=== PATIENT | male | born 1935 | race Caucasian/White ===

== ENCOUNTER → 2021-07-01 | Outpatient (CLI) | payer MEDICARE, BC ==
[2021-07-01 11:49] LABS: African American GFR (CKD) >90 (>60 ml/min/1.73 sqM); Blood Urea Nitrogen 22 mg/dL (9-20); Non-African American GFR(CKD) 80 (>60 ml/min/1.73 sqM)
--- NOTE | 2021-07-01 12:57 | CT ---
EXAMINATION TYPE: CT soft tissue neck w con DATE OF EXAM: 07/01/2021 HISTORY: Localized swelling, mass, lump in neck. Pt indicated LT side but said no palpable area. COMPARISON: NONE CT DLP: 314 mGycm. Automated Exposure Control for Dose Reduction was Utilized. TECHNIQUE: CT scan of the neck is performed with IV Contrast, patient injected with 100 mL of Isovue 300, axial images are obtained, coronal and sagittal reformatted images are reviewed. FINDINGS: Airway: No gross abnormality seen. Parotid/submandibular glands: Right submandibular gland not visualized suspect is surgically absent o r markedly atrophic. Carotid/Vascular Structures: Moderate to severe mixed plaque right carotid bulb likely causing signif icant stenosis axial images 51 through 55 in the proximal internal carotid artery requires follow-up. Moderate peripheral calcified plaque left carotid bulb and proximal internal carotid artery without significant stenosis. Osseous Structures: Grade 1 anterolisthesis C5 on C6. Grade 1 retrolisthesis C6 on C7. Moderate disc space narrowing C5-C6 and C6-C7 levels. Posterior spur disc complexes efface the anterior thecal sac at nearly all cervical levels on sagittal images. Multilevel uncovertebral facet degenerative changes greatest on the right in the upper cervical spine and on the left in the mid cervical spine cause si gnificant bilateral neural foraminal narrowing. Other: Prominent but subcentimeter lymph nodes throughout the neck bilaterally. No definitive greater than 1 cm neck adenopathy. For reference right supraclavicular lymph node measures 10 x 7 mm axial i mage 26. Cortical buckle right globe is present. There is cardiomegaly with single lead pacemaker/defibrillato r on the localizer. Streak artifact from cavitary fillings and crowns in the bilateral teeth are note d limiting evaluation at level of mouth. Elevated left hemidiaphragm noted on localizer. IMPRESSION: 1. No definitive suspicious mass or neck adenopathy. 2. Severe mixed plaque right carotid bulb and proximal internal carotid artery likely causing signifi cant stenosis. Advise carotid ultrasound follow-up to confirm. Difficult to accurately measure due to prominent calcified plaque causing blooming artifact. 3. Nonvisualized right submandibular gland, correlate clinically for prior surgery?
== END | disposition home or self-care (01) ==
LOC: RADCTMAIN 10:57
PROVIDERS: ATTEND Otolaryngology
DX: J30.2 Other seasonal allergic rhinitis (principal); R49.0 Dysphonia; R22.1 Localized swelling, mass and lump, neck
CPT/HCPCS: 82565; 84520; 70491; 36415; Q9967

== ENCOUNTER → 2021-07-26 | Outpatient (CLI) | payer MEDICARE, BC ==
--- NOTE | 2021-07-26 12:08 | FL ---
EXAMINATION TYPE: FL barium swallow w video DATE OF EXAM: 07/26/2021 MODIFIED SWALLOW / DEGLUTITION STUDY CLINICAL HISTORY: Dysphagia. TECHNIQUE: Deglutition study is performed utilizing thin liquid barium, honey and nectar thick liqui d barium, barium thick applesauce, and barium coated cracker. COMPARISON: CT dated 07/01/2021 FINDINGS: Laryngeal penetration and silent aspiration was noted with the thin barium consistency. Oth erwise no evidence of laryngeal penetration or aspiration at the time of the study. Total fluoroscopi c time 1 minute and 48 seconds. No images on PACS. IMPRESSION: Laryngeal penetration with silent aspiration as described above. Please refer to speech t herapist notes for further details.
== END | disposition home or self-care (01) ==
LOC: RADFLMAIN 10:56
PROVIDERS: ATTEND Otolaryngology
DX: J39.2 Other diseases of pharynx (principal); R49.0 Dysphonia
CPT/HCPCS: 74230

== ENCOUNTER → 2021-10-14 | Outpatient (CLI) | payer MEDICARE, BC ==
[2021-10-14 11:28] LABS: African American GFR (CKD) >90 (>60 ml/min/1.73 sqM); Blood Urea Nitrogen 19 mg/dL (9-20); Non-African American GFR(CKD) 81 (>60 ml/min/1.73 sqM)
--- NOTE | 2021-10-14 12:05 | CT ---
EXAMINATION TYPE: CT soft tissue neck w con DATE OF EXAM: 10/14/2021 HISTORY: OTHER DISEASES OF PHARYNX COMPARISON: CT neck July 01, 2021 CT DLP: 255.1 mGycm. Automated Exposure Control for Dose Reduction was Utilized. TECHNIQUE: CT scan of the neck is performed with IV Contrast, patient injected with 70 mL of Isovue 300, axial images are obtained, coronal and sagittal reformatted images are reviewed. FINDINGS: Airway: Airway remains patent. No significant change from prior. Parotid/submandibular glands: Nonvisualized right submandibular gland redemonstrated. Correlate clini nawaf. Carotid/Vascular Structures: Severe calcified plaque right carotid bulb likely causing significant st enosis redemonstrated. Correlate clinically. Moderate calcified plaque left common carotid and caroti d bulb redemonstrated . Osseous Structures: Severe Grade 1 anterolisthesis C5 on C6 redemonstrated more prominent from prior. Moderate to severe disc space narrowing C5-C6 and C6-C7 levels redemonstrated. Posterior calcified d isc herniations efface the anterior thecal sac at nearly all cervical levels on sagittal images. Mult ilevel uncovertebral facet degenerative changes greatest on the right in the upper cervical spine and on the left in the mid cervical spine cause significant bilateral neural foraminal narrowing similar to prior. Levoconvex scoliosis centered cervical thoracic junction redemonstrated. Other: Prominent but subcentimeter lymph nodes throughout the neck bilaterally are again seen. No def initive new greater than 1 cm neck adenopathy. For reference right supraclavicular lymph node measure s 10 x 7 mm axial image 21 unchanged from prior. Cortical buckle right globe is redemonstrated. There is cardiomegaly with single lead pacemaker/defib rillator on the localizer redemonstrated. Streak artifact from cavitary fillings and crowns in the bi lateral teeth are noted limiting evaluation at level of mouth. Elevated left hemidiaphragm noted part ially imaged on localizer. IMPRESSION: No significant change from prior. No definitive new oral pharyngeal mass or new greater than 1 cm nec k adenopathy.
== END | disposition home or self-care (01) ==
LOC: RADCTMAIN 10:50
PROVIDERS: ATTEND Otolaryngology
DX: J39.2 Other diseases of pharynx (principal); R49.0 Dysphonia
CPT/HCPCS: 82565; 84520; 70491; 36415; Q9967

== ENCOUNTER 2022-02-27 12:28 | Inpatient (IN) | payer MEDICARE, BC ==
[2022-02-27] MEDS ORDERED: SODIUM CHLORIDE 0.9% 1,000 ML IV STA ×3 (12:50→15:50)
[2022-02-27 13:14] LABS: Basophils % (A) 0 %; Eosinophils % (A) 1 %; HCT 39.1 % (39.0-53.0); HGB 12.6 gm/dL (13.0-17.5); Lymphocytes # (A) 3.9 k/uL (1.0-4.8); Lymphocytes % (A) 50 %; MCH 33.5 pg (25.0-35.0); MCHC 32.3 g/dL (31.0-37.0); MCV 103.7 fL (80.0-100.0); Macrocytosis Moderate; Monocytes # (A) 0.1 k/uL (0-1.0); Monocytes % (A) 1 %; Neutrophils # (A) 3.5 k/uL (1.3-7.7); Neutrophils % (A) 45 %; Platelet Count 196 k/uL (150-450); RBC 3.77 m/uL (4.30-5.90); RDW 15.2 % (11.5-15.5); WBC 7.7 k/uL (3.8-10.6)
[2022-02-27 13:26] LABS: ALT 25 U/L (4-49); AST 30 U/L (17-59); African American GFR (CKD) >90 (>60 ml/min/1.73 sqM); Albumin 2.8 g/dL (3.5-5.0); Alkaline Phosphatase 113 U/L (38-126); Anion Gap 3 mmol/L; Blood Urea Nitrogen 24 mg/dL (9-20); Calcium 9.1 mg/dL (8.4-10.2); Carbon Dioxide 31 mmol/L (22-30); Chloride 98 mmol/L (98-107); Glucose 105 mg/dL (74-99); Magnesium 1.8 mg/dL (1.6-2.3); Non-African American GFR(CKD) 83 (>60 ml/min/1.73 sqM); Potassium 3.9 mmol/L (3.5-5.1); Sodium 132 mmol/L (137-145); Total Bilirubin 1.5 mg/dL (0.2-1.3); Total Protein 5.1 g/dL (6.3-8.2)
--- NOTE | 2022-02-27 14:13 | XR ---
EXAMINATION TYPE: XR chest 2V DATE OF EXAM: 02/27/2022 2:06 PM COMPARISON: None TECHNIQUE: XR chest 2V Frontal and lateral views of the chest. CLINICAL INDICATION:Male, 86 years old with history of Weakness; FINDINGS: Lungs/Pleura: There is no evidence of pleural effusion, focal consolidation, or pneumothorax. Promin ent perihilar interstitial lung markings. Elevation of the left hemidiaphragm. Heart/mediastinum: Cardiomediastinal silhouette is enlarged. Atherosclerotic calcifications are seen in the aorta. Single-lead cardiac conduction device overlying the left hemithorax with lead projecti ng over the right ventricle. Musculoskeletal: Multiple level degenerative disc disease changes seen throughout the spine. No acute osseous abnormality. Diffuse bony demineralization. Severe bilateral shoulder arthropathy. IMPRESSION: Cardiomegaly with prominent perihilar interstitial lung markings which may represent pulmonary edema. Correlate for CHF exacerbation versus atypical viral pneumonia.
--- NOTE | 2022-02-27 15:40 | ED ---
Weakness HPI - General Chief complaint: Weakness Stated complaint: weakness Time Seen by Provider: 02/27/22 12:50 Source: EMS Mode of arrival: EMS Limitations: no limitations - History of Present Illness Initial comments: Patient is an 86-year-old male who presents to the emergency department for evaluation of weakness. According to family patient has been at [facility] for the past month after left hip replacement. They're concerned that patient has been very weak and has little appetite despite taking an appetite stimulant. State patient has lost 15 pounds in the past 3 weeks. Patient is a and O 3. He reports generalized weakness and occasional cough. He denies fever, chills, chest pain, shortness of breath, abdominal pain, nausea, vomiting, burning with urination. Family reports history of myocardial infarction, pacemaker for unknown arrhythmia. Patient on lovenox. - Related Data Home Medications Medication Instructions Recorded Confirmed Acetaminophen Tab [Tylenol] 650 mg PO Q4H PRN 02/27/22 02/27/22 Aspirin EC [Ecotrin Low Dose] 81 mg PO DAILY 02/27/22 02/27/22 Calcium Carbonate [Calcium] 1,200 mg PO HS 02/27/22 02/27/22 Calcium Carbonate [Tums] 500 mg PO Q12H 02/27/22 02/27/22 Cholecalciferol [Vitamin D3 (25 50 mcg PO DAILY 02/27/22 02/27/22 Mcg = 1000 Iu)] Cyanocobalamin [Vitamin B-12] 500 mcg PO DAILY 02/27/22 02/27/22 Dorzolamide 2% [Trusopt 2%] 1 drop BOTH EYES Q8H 02/27/22 02/27/22 Enoxaparin [Lovenox] 40 mg SQ DAILY 02/27/22 02/27/22 Furosemide [Lasix] 40 mg PO DAILY@0600 02/27/22 02/27/22 HYDROcodone/APAP 5-325MG [Holt 1 - 2 tab PO Q4H PRN 02/27/22 02/27/22 5-325] Isosorbide Mononitrate ER [Imdur] 60 mg PO DAILY 02/27/22 02/27/22 Lactose-Reduced Food [Ensure Plus] 237 ml PO TID@0900,1300,2100 02/27/22 02/27/22 Lactulose 20 gm PO BID 02/27/22 02/27/22 Melatonin 5 mg PO HS 02/27/22 02/27/22 Metoprolol Tartrate [Lopressor] 25 mg PO Q12H 02/27/22 02/27/22 Omeprazole Magnesium [PriLOSEC OTC] 20 mg PO DAILY@0600 02/27/22 02/27/22 Pravastatin Sodium [Pravachol] 40 mg PO HS 02/27/22 02/27/22 Tamsulosin HCl [Flomax] 0.4 mg PO BID 02/27/22 02/27/22 levETIRAcetam [Keppra] 500 mg PO Q12H 02/27/22 02/27/22 Allergies Allergy/AdvReac Type Severity Reaction Status Date / Time No Known Allergies Allergy Verified 02/27/22 14:45 Review of Systems ROS Statement: Those systems with pertinent positive or pertinent negative responses have been documented in the HPI. ROS Other: All systems not noted in ROS Statement are negative. General Exam Limitations: no limitations General appearance: alert, in no apparent distress Eye exam: Present: normal appearance, PERRL, EOMI. Absent: scleral icterus, conjunctival injection, periorbital swelling Respiratory exam: Present: normal lung sounds bilaterally. Absent: respiratory distress, wheezes, rales, rhonchi, stridor Cardiovascular Exam: Present: regular rate, normal rhythm, normal heart sounds. Absent: systolic murmur, diastolic murmur, rubs, gallop, clicks GI/Abdominal exam: Present: soft, normal bowel sounds. Absent: distended, tenderness, guarding, rebound, rigid Extremities exam: Present: normal inspection, normal capillary refill. Absent: pedal edema Neurological exam: Present: alert, oriented X3, CN II-XII intact Psychiatric exam: Present: normal affect, normal mood Course Vital Signs 02/27/22 02/27/22 02/27/22 12:31 13:00 13:30 Temperature 98.3 F Pulse Rate 75 75 69 Respiratory 18 23 20 Rate Blood Pressure 100/67 100/67 88/60 O2 Sat by Pulse 96 97 96 Oximetry 02/27/22 02/27/22 02/27/22 14:00 15:00 15:30 Temperature Pulse Rate 76 76 Respiratory 16 16 Rate Blood Pressure 91/59 106/64 95/59 O2 Sat by Pulse 96 94 L Oximetry Medical Decision Making - Medical Decision Making Was pt. sent in by a medical professional or institution (LINDSAY Cisneros, SENIOR FACILITIES MANAGER, urgent ca re, hospital, or care home...) When possible be specific @ -[No] Did you speak to anyone other than the patient for history (EMS, parent, family, police, friend...)? What history was obtained from this source @ -[No] Did you review nursing and triage notes (agree or disagree)? Why? @ -[I reviewed and agree with nursing and triage notes] Were old charts reviewed (outside hosp., previous admission, EMS record, old EKG, old radiological studies, urgent care reports/EKG's, care home records)? Report findings @ -[No old charts were reviewed] Differential Diagnosis (chest pain, altered mental status, abdominal pain women, abdominal pain men, vaginal bleeding, weakness, fever, dyspnea, syncope, headache, dizziness, GI bleed, back pain, seizure, CVA, palpatations, mental health)? @ Differential Weakness: Hypoglycemia, shock, sepsis, hyponatremia, anemia, infection, [place], ETOH, adverse medicine reaction, overdose, stroke, this is not meant to be an all-inclusive list. EKG interpreted by me (3pts min.). @ -Yes, this rhythm without ST segment or T-wave abnormality. Ventricular rate 70, VA interval 118, QRS duration 110, QTC 4:15 X-rays interpreted by me (1pt min.). @Yes, chest x-ray concerning for viral pneumonia. CT interpreted by me (1pt min.). @ -[None done] U/S interpreted by me (1pt. min.). @ -[None done] What testing was considered but not performed or refused? (CT, X-rays, U/S, labs)? Why? @ -[None] What meds were considered but not given or refused? Why? @ -[None] Did you discuss the management of the patient with other professionals (professionals i.e. LINDSAY Cisneros, SENIOR FACILITIES MANAGER, lab, RT, psych nurse, psych social worker, rn neonatal, teacher, weapons officer naval activity, top case assembler)? Give summary @ -[No] Was smoking cessation discussed for >3mins.? @ -[No] Was critical care preformed (if so, how long)? @ -[No] Were there social determinants of health that impacted care today? How? (Homelessness, low income, unemployed, alcoholism, drug addiction, transportation, low edu. Level, literacy, decrease access to med. care, skilled nursing, rehab)? @ -[No] Was there de-escalation of care discussed even if they declined (Discuss DNR or withdrawal of care, Hospice)? DNR status @ -[No] What co-morbidities impacted this encounter? (DM, HTN, Smoking, COPD, CAD, Cancer, CVA, ARF, Chemo, Hep., AIDS, mental health diagnosis, sleep apnea, morbid obesity)? @ -[place], pacemaker Was patient admitted / discharged? Hospital course, mention meds given and route, prescriptions, significant lab abnormalities, going to OR and other pertinent info. @ -This is an 86-year-old male presenting for generalized weakness.Laboratory studies significant for anemia, hemoglobin 12.6. No previous for comparison. There is mild hyponatremia at 132, treated with a fluid bolus. BNP is elevated at 1960 however there is no evidence of edema. Chest pain or shortness of breath. Urinalysis reveals use. Influenza A is detected. Chest x-ray is concerning for viral pneumonia. Despite fluid bolus blood pressure remained on the low side, 95/59 after fluids. Maintenace fluids initiated. No fever, no hypoxia. Patient to be admitted for viral pneumonia with hypotension. Case discussed with Dr. Stapleton who accepted admission Undiagnosed new problem with uncertain prognosis? @ -[No] Drug Therapy requiring intensive monitoring for toxicity (Heparin, Nitro, Insulin, Cardizem)? @ -[No] Were any procedures done? @ -[No] Diagnosis/symptom? @ -influenza with pneumoniaa Acute, or Chronic, or Acute on Chronic? @ acute Uncomplicated (without systemic symptoms) or Complicated (systemic symptoms)? @ -uncomplicated Side effects of treatment? @ -[No] Exacerbation, Progression, or Severe Exacerbation? @ -[No] Poses a threat to life or bodily function? How? (Chest pain, [place], [place], pneumonia, PE, COPD, DKA, ARF, appy, cholecystitis, CVA, Diverticulitis, Homicidal, Suicidal, threat to staff... and all critical care pts) @ -[No] Dr. Cisneros is my attending. - Lab Data Result diagrams: 02/27/22 12:54 02/27/22 12:54 Lab Results 02/27/22 02/27/22 02/27/22 Range/Units 12:54 12:54 12:54 WBC 7.7 (3.8-10.6) k/uL RBC 3.77 L (4.30-5.90) m/uL Hgb 12.6 L (13.0-17.5) gm/dL Hct 39.1 (39.0-53.0) % MCV 103.7 H (80.0-100.0) fL MCH 33.5 (25.0-35.0) pg MCHC 32.3 (31.0-37.0) g/dL RDW 15.2 (11.5-15.5) % Plt Count 196 (150-450) k/uL MPV 8.0 Neutrophils % 45 % Lymphocytes % 50 % Monocytes % 1 % Eosinophils % 1 % Basophils % 0 % Neutrophils # 3.5 (1.3-7.7) k/uL Lymphocytes # 3.9 (1.0-4.8) k/uL Monocytes # 0.1 (0-1.0) k/uL Eosinophils # 0.0 (0-0.7) k/uL Basophils # 0.0 (0-0.2) k/uL Macrocytosis Moderate Sodium 132 L (137-145) mmol/L Potassium 3.9 (3.5-5.1) mmol/L Chloride 98 (98-107) mmol/L Carbon Dioxide 31 H (22-30) mmol/L Anion Gap 3 mmol/L BUN 24 H (9-20) mg/dL Creatinine 0.75 (0.66-1.25) mg/dL Est GFR (CKD-EPI)AfAm >90 (>60 ml/min/1.73 sqM) Est GFR (CKD-EPI)NonAf 83 (>60 ml/min/1.73 sqM) Glucose 105 H (74-99) mg/dL Plasma Lactic Acid Lucio 1.6 (0.7-2.0) mmol/L Calcium 9.1 (8.4-10.2) mg/dL Magnesium 1.8 (1.6-2.3) mg/dL Total Bilirubin 1.5 H (0.2-1.3) mg/dL AST 30 (17-59) U/L ALT 25 (4-49) U/L Alkaline Phosphatase 113 (38-126) U/L NT-Pro-B Natriuret Pep pg/mL Total Protein 5.1 L (6.3-8.2) g/dL Albumin 2.8 L (3.5-5.0) g/dL TSH 1.980 (0.465-4.680) mIU/L Urine Color Urine Appearance (Clear) Urine pH (5.0-8.0) Ur Specific [place] (1.001-1.035) Urine Protein (Negative) Urine Glucose (UA) (Negative) Urine Ketones (Negative) Urine Blood (Negative) Urine Nitrite (Negative) Urine Bilirubin (Negative) Urine Urobilinogen (<2.0) mg/dL Ur Leukocyte Esterase (Negative) Urine RBC (0-5) /hpf Urine WBC (0-5) /hpf Hyaline Casts (0-2) /lpf Urine Mucus (None) /hpf Urine Yeast (Budding) (None) /hpf Influenza Type A (PCR) (Not Detectd) Influenza Type B (PCR) (Not Detectd) RSV (PCR) (Not Detectd) SARS-CoV-2 (PCR) (Not Detectd) 02/27/22 02/27/22 02/27/22 Range/Units 13:07 13:07 15:07 WBC (3.8-10.6) k/uL RBC (4.30-5.90) m/uL Hgb (13.0-17.5) gm/dL Hct (39.0-53.0) % MCV (80.0-100.0) fL MCH (25.0-35.0) pg MCHC (31.0-37.0) g/dL RDW (11.5-15.5) % Plt Count (150-450) k/uL MPV Neutrophils % % Lymphocytes % % Monocytes % % Eosinophils % % Basophils % % Neutrophils # (1.3-7.7) k/uL Lymphocytes # (1.0-4.8) k/uL Monocytes # (0-1.0) k/uL Eosinophils # (0-0.7) k/uL Basophils # (0-0.2) k/uL Macrocytosis Sodium (137-145) mmol/L Potassium (3.5-5.1) mmol/L Chloride (98-107) mmol/L Carbon Dioxide (22-30) mmol/L Anion Gap mmol/L BUN (9-20) mg/dL Creatinine (0.66-1.25) mg/dL Est GFR (CKD-EPI)AfAm (>60 ml/min/1.73 sqM) Est GFR (CKD-EPI)NonAf (>60 ml/min/1.73 sqM) Glucose (74-99) mg/dL Plasma Lactic Acid Lucio (0.7-2.0) mmol/L Calcium (8.4-10.2) mg/dL Magnesium (1.6-2.3) mg/dL Total Bilirubin (0.2-1.3) mg/dL AST (17-59) U/L ALT (4-49) U/L Alkaline Phosphatase (38-126) U/L NT-Pro-B Natriuret Pep 1960 pg/mL Total Protein (6.3-8.2) g/dL Albumin (3.5-5.0) g/dL TSH (0.465-4.680) mIU/L Urine Color Yellow Urine Appearance Cloudy (Clear) Urine pH 7.0 (5.0-8.0) Ur Specific [place] 1.013 (1.001-1.035) Urine Protein Negative (Negative) Urine Glucose (UA) Negative (Negative) Urine Ketones Negative (Negative) Urine Blood Negative (Negative) Urine Nitrite Negative (Negative) Urine Bilirubin Negative (Negative) Urine Urobilinogen 2.0 (<2.0) mg/dL Ur Leukocyte Esterase Negative (Negative) Urine RBC 2 (0-5) /hpf Urine WBC 2 (0-5) /hpf Hyaline Casts 1 (0-2) /lpf Urine Mucus Rare H (None) /hpf Urine Yeast (Budding) Few H (None) /hpf Influenza Type A (PCR) Detected A (Not Detectd) Influenza Type B (PCR) Not Detected (Not Detectd) RSV (PCR) Not Detected (Not Detectd) SARS-CoV-2 (PCR) Not Detected (Not Detectd) Disposition Clinical Impression: Generalized weakness, Hypotension, Influenza A with pneumonia Disposition: ADMITTED IP TO THIS [facility] Condition: Good Referrals: Morris Thibodeaux MD [Primary Care Provider] - 1-2 days
[2022-02-27 15:47] LABS: Appearance,Urine Cloudy (Clear); Bilirubin,Urine Negative (Negative); Blood,Urine Negative (Negative); Budding Yeast,Urine Few /hpf; Color,Urine Yellow; Glucose,Urine (UA) Negative (Negative); Hyaline Casts,Urine 1 /lpf (0-2); Ketones,Urine Negative (Negative); Leukocyte Esterase,Urine Negative (Negative); Mucus,Urine Rare /hpf; Nitrite,Urine Negative (Negative); Protein,Urine Negative (Negative); RBC,Urine 2 /hpf (0-5); Specific Gravity,Urine 1.013 (1.001-1.035); WBC,Urine 2 /hpf (0-5)
[2022-02-27] MEDS ORDERED: NALOXONE 0.4 MG/ML 1 ML VIAL IV PRN (16:09)
[2022-02-27] MEDS ORDERED: FLUCONAZOLE 150 MG TAB PO STA (18:19)
[2022-02-28] MEDS ORDERED: CALCIUM CARBONATE 500 MG CHEWABLE PO SCH (00:15)
[2022-02-28] MEDS ORDERED: DORZOLAMIDE HCL 2% DROPS 10 ML BTL BOTH EYES SCH (01:00)
[2022-02-28] MEDS ORDERED: levETIRAcetam 500 MG TAB PO SCH (01:00)
[2022-02-28] MEDS ORDERED: METOPROLOL TARTRATE 25 MG TAB PO SCH (01:00)
[2022-02-28] MEDS ORDERED: HYDROcodone/APAP 5-325MG 1 EACH TAB PO PRN (01:00)
[2022-02-28] MEDS: CALCIUM CARBONATE 500 MG CHEWABLE PO SCH (01:46)
--- NOTE | 2022-02-28 02:01 | HP ---
HISTORY AND PHYSICAL HISTORY OF PRESENT ILLNESS: This is an 86-year-old white male who came to the emergency room with weakness, very weak, low appetite despite appetite stimulant, lost 15 pounds in 3 weeks. He is alert and oriented x3. His cough, congestion, and influenza positive. I have started him on Tamiflu, steroids, dietary consult. HOME MEDICINES: 1. Tylenol. 2. Aspirin. 3. Calcium carbonate. 4. Vitamin D. 5. Vitamin B12. 6. Lovenox. 7. Lasix. 8. Trusopt ophthalmic. 9. Lopressor 25 b.i.d. 10.Omeprazole 20 mg daily. 11.Pravachol 40 mg daily. 12.Flomax 0.4 mg b.i.d. 13.Keppra 500 b.i.d. 14.Imdur 60 daily. 15.Tanana 5/325 every 4-6. ALLERGIES: Negative. REVIEW OF SYSTEMS: A 14-point review of systems otherwise negative. PHYSICAL EXAMINATION: VITAL SIGNS: Reviewed. Temp 98.3, blood pressure is 88 to 100 systolic over 60s, O2 96 on room air, respiratory rate 18 to 20, and pulse ox 75-80. GENERAL: Weak, fatigued, dry skin turgor. HEENT: Dry mucous membranes. Pupils equal, round, and reactive. CARDIOVASCULAR: S1, S2. LUNGS: Scattered wheeze or rhonchi. HEMATOLOGY: Negative Homans. PSYCH: Fair mood and affect. NEUROLOGIC: Alert and oriented x3. ASSESSMENT: Influenza A, acute hypoxemic respiratory distress secondary to influenza A, possible congestive heart failure versus COPD. Prognosis guarded. Pulmonary infectious disease consult. Start him on Tamiflu, steroids updrafts. Prognosis guarded. MMODL / IJN: [id number] /
[2022-02-28] MEDS: FUROSEMIDE 40 MG TAB PO SCH (05:35)
[2022-02-28] MEDS: PANTOPRAZOLE 40 MG TABLET PO SCH (05:35)
[2022-02-28] MEDS: IPRATROPIUM-ALBUTEROL 3 ML NEB INHALATION SCH ×4 (07:37→20:33)
[2022-02-28] MEDS ORDERED: BUDESONIDE 0.5 MG/2 ML NEBU INHALATION SCH (08:00)
[2022-02-28] MEDS ORDERED: NON FORMULARY DRUG (Lactose-Reduced Food [Ensure Plus] 237 ML Ml) PO SCH (09:00)
[2022-02-28] MEDS: ACETAMINOPHEN TAB 325 MG TAB PO PRN (09:51)
[2022-02-28] MEDS: ENOXAPARIN 40 MG/0.4 ML SYRINGE SQ SCH (09:51)
[2022-02-28] MEDS: LACTULOSE 20 GM/30 ML CUP PO SCH ×2 (09:51→20:56)
[2022-02-28] MEDS: ISOSORBIDE MONONITRATE ER 60 MG TAB.ER.24H PO SCH (09:52)
[2022-02-28] MEDS: levETIRAcetam 500 MG TAB PO SCH ×2 (09:52→15:30)
[2022-02-28] MEDS: ASPIRIN 81 MG PO SCH (09:52)
[2022-02-28] MEDS: TAMSULOSIN 0.4 MG CAP.ER.24H PO SCH ×2 (09:52→20:55)
[2022-02-28] MEDS: methylPREDNISolone SOD SUCCI 40 MG/ML 1 ML VIAL IV SCH ×3 (09:52→23:16)
[2022-02-28] MEDS: CHOLECALCIFEROL 25 MCG (1000 IU) TABLET PO SCH (09:52)
[2022-02-28] MEDS: OSELTAMIVIR 75 MG CAP PO SCH ×2 (09:52→22:12)
[2022-02-28] MEDS: CYANOCOBALAMIN 500 MCG TAB PO SCH (09:52)
[2022-02-28] MEDS: METOPROLOL TARTRATE 25 MG TAB PO SCH ×2 (09:52→20:55)
[2022-02-28] MEDS: DORZOLAMIDE HCL 2% DROPS 10 ML BTL BOTH EYES SCH ×2 (09:53→16:52)
--- NOTE | 2022-02-28 10:17 | CT ---
EXAMINATION TYPE: CT chest wo con CT DLP: 251.9 mGycm, Automated exposure control for dose reduction was used. DATE OF EXAM: 02/28/2022 9:56 AM COMPARISON: Chest radiograph 02/27/2022. CLINICAL INDICATION:Male, 86 years old with history of dyspnea; TECHNIQUE: Multiple axial images were obtained through the chest without IV contrast. Lack of IV or o ral contrast limits evaluation of solid and hollow organ viscera. FINDINGS: LUNGS/ PLEURA: Mild centrilobular emphysematous changes. Bilateral lower lobe dependent reticular mary jo undglass opacities. No suspicious pulmonary nodule or mass. AIRWAY: Patent and unremarkable.. HEART: Moderate cardiomegaly. No pericardial effusion. Moderate coronary artery calcifications. MEDIASTINUM: No gross evidence of adenopathy. VASCULATURE: Ascending thoracic aortic aneurysm measuring up to 4.3 cm. Tortuosity of the thoracic a kita. Left chest wall single-lead cardiac pacing device. Atherosclerotic scattered calcification of t he aorta and its branches MUSCULOSKELETAL: No acute osseous abnormalities. Severe bilateral shoulder arthropathy. Mild multilev el degenerative disc disease. Grade 1 anterolisthesis of T1 on T2, likely degenerative. SOFT TISSUES/LYMPH NODES: Unremarkable. LOWER NECK: No significant findings. UPPER ABDOMEN: Subcentimeter anterior left hepatic lobe hypodense lesion which is too small to charac terize. IMPRESSION: 1. Bilateral lower lobe dependent reticular ground glass opacities which may represent atelectasis ve rsus atypical viral pneumonia in the appropriate clinical setting. 2. Mild COPD changes. 3. Descending thoracic aortic aneurysm measuring up to 4.3 cm. 4. Moderate cardiomegaly with moderate coronary artery calcifications.
--- NOTE | 2022-02-28 14:03 | P.CNPUL ---
History of Present Illness Consult date: 02/28/22 Requesting physician: Jake Stapleton Reason for consult: dyspnea, abnormal CXR/CT Chief complaint: Weakness, dehydration, shortness of breath History of present illness: This is a very pleasant 86-year-old male patient with a known history of hypertension, hyperlipidemia, BPH,, congestive heart failure, AICD placement. In January 2022 the patient had sustained a fall at home and broke his left hip. He was seen at [facility] emergency room and subsequent ablation count is [facility] for left hip surgery and repair. He was discharged from there on 01/31/2022 to [facility] on the [place]. While there he contracted influenza and had been eating progressively weak. They transferred him to the sick [facility] and he was not receiving any physical therapy. He had been losing a significant amount of weight. He is brought into the emergency room yesterday for an evaluation. White count 7.7. Hemoglobin 12.6. Platelets 196. Sodium 132. Potassium 3.9. BUN 24. Creatinine 0.75. ProBNP 1960. TSH 1.9. Influenza A+ COVID-19 screen negative. RSV screen negative. Pro-calcitonin pending. He is seen today in consultation on the in the emergency department. He is currently sitting up in as a chair. Awake and alert. He appears dehydrated. He is weak and cachectic. He is maintaining O2 saturations in the 90s on room air. Chest x-ray reveals cardiomegaly with prominent perihilar interstitial lung markings consistent with congestive heart failure versus atypical viral pneumonia. Computed tomography scan of the chest revealed bilateral lower lobe dependent reticular groundglass opacities representing atelectasis versus atypical viral pneumonia. Mild COPD changes. Descending thoracic aortic aneurysm measuring 4.3 cm. There is marketed air cardiomegaly and moderate, coronary artery calcifications. He does have dyspnea with minimal exertion. He has currently a dry nonproductive cough. Previously with some yellow phlegm. No fever. No chills. No nausea, vomiting or diarrhea. He has been initiated on Tamiflu, DuoNeb inhalations, Pulmicort inhalations, IV Solu- Medrol. He is remaining on oral diuretics. Lovenox for DVT prophylaxis. Tylenol for pain control. Review of Systems REVIEW OF SYSTEMS: CONSTITUTIONAL: Generalized weakness, fatigue. Denies any recent significant weight loss or weight gain. EYES: Denies change in vision. EARS, NOSE, MOUTH, THROAT: Denies headaches, denies sore throat. CARDIOVASCULAR: Denies chest pain, palpitations or syncopal episodes. RESPIRATORY: Positive for shortness of breath, cough, congestion no hemoptysis. GASTROINTESTINAL: Denies change in appetite, denies abdominal pain GENITOURINARY: Denies hematuria, denies infections. MUSKULOSKELETAL: Denies pain, denies swelling. INTEGUMENTARY: Denies rash, denies eczema. NEUROLOGICAL: Denies recent memory loss, no recent seizure activity. PSYCHIATRIC: Denies anxiety, denies depression. HEMATOLOGIC/LYMPHATIC: Denies anemia, denies enlarged lymph nodes. Past Medical History Past Medical History: Heart Failure, COPD, Myocardial Infarction ([place]), Pneumonia Additional Past Medical History / Comment(s): [place] 1985, arthritis, History of Any Multi-Drug Resistant Organisms: None Reported Past Surgical History: Back Surgery, Orthopedic Surgery, Pacemaker Additional Past Surgical History / Comment(s): left hip surgery, Pacemaker/Defib inplantation Past Psychological History: No Psychological Hx Reported Smoking Status: Never smoker Past Alcohol Use History: Occasional Past Drug Use History: None Reported Medications and Allergies Home Medications Medication Instructions Recorded Confirmed Type Acetaminophen Tab [Tylenol] 650 mg PO Q4H PRN 02/27/22 02/27/22 History Aspirin EC [Ecotrin Low Dose] 81 mg PO DAILY 02/27/22 02/27/22 History Calcium Carbonate [Calcium] 1,200 mg PO HS 02/27/22 02/27/22 History Calcium Carbonate [Tums] 500 mg PO Q12H 02/27/22 02/27/22 History Cholecalciferol [Vitamin D3 (25 50 mcg PO DAILY 02/27/22 02/27/22 History Mcg = 1000 Iu)] Cyanocobalamin [Vitamin B-12] 500 mcg PO DAILY 02/27/22 02/27/22 History Dorzolamide 2% [Trusopt 2%] 1 drop BOTH EYES Q8H 02/27/22 02/27/22 History Enoxaparin [Lovenox] 40 mg SQ DAILY 02/27/22 02/27/22 History Furosemide [Lasix] 40 mg PO DAILY@0600 02/27/22 02/27/22 History HYDROcodone/APAP 5-325MG [[place]ola 1 - 2 tab PO Q4H PRN 02/27/22 02/27/22 History 5-325] Isosorbide Mononitrate ER [Imdur] 60 mg PO DAILY 02/27/22 02/27/22 History Lactose-Reduced Food [Ensure Plus] 237 ml PO TID@0900,1300,2100 02/27/22 02/27/22 History Lactulose 20 gm PO BID 02/27/22 02/27/22 History Melatonin 5 mg PO HS 02/27/22 02/27/22 History Metoprolol Tartrate [Lopressor] 25 mg PO Q12H 02/27/22 02/27/22 History Omeprazole Magnesium [PriLOSEC OTC] 20 mg PO DAILY@0600 02/27/22 02/27/22 History Pravastatin Sodium [Pravachol] 40 mg PO HS 02/27/22 02/27/22 History Tamsulosin HCl [Flomax] 0.4 mg PO BID 02/27/22 02/27/22 History levETIRAcetam [Keppra] 500 mg PO Q12H 02/27/22 02/27/22 History Allergies Allergy/AdvReac Type Severity Reaction Status Date / Time No Known Allergies Allergy Verified 02/27/22 14:45 Physical Exam Vitals: Vital Signs Temp Pulse Resp BP Pulse Ox 02/28/22 11:47 112 H 02/28/22 11:36 100 02/28/22 09:45 99 F 94 18 128/82 98 02/28/22 07:53 112 H 02/28/22 07:40 100 02/28/22 05:41 87 16 106/75 95 02/27/22 23:34 99.0 F 86 20 111/75 97 02/27/22 23:30 86 20 115/72 02/27/22 23:00 86 20 126/74 02/27/22 22:30 95 23 112/72 02/27/22 22:00 92 20 112/72 02/27/22 21:30 79 16 127/68 02/27/22 21:00 84 20 111/70 02/27/22 20:30 80 22 100/69 02/27/22 20:00 80 25 H 102/67 02/27/22 19:30 78 25 H 106/66 02/27/22 19:00 78 24 97/65 02/27/22 18:30 80 20 100/66 02/27/22 18:00 81 20 92/63 02/27/22 17:30 76 20 93/71 02/27/22 17:00 73 22 88/58 98 02/27/22 16:30 77 23 102/65 99 02/27/22 16:00 75 20 86/65 99 02/27/22 15:30 76 16 95/59 94 L 02/27/22 15:00 76 16 106/64 96 02/27/22 14:00 91/59 GENERAL EXAM: Alert, frail, cachectic very pleasant 86-year-old male patient, on room air, fairly comfortable in no apparent distress. HEAD: Normocephalic. EYES: Normal reaction of pupils, equal size. NOSE: Clear with pink turbinates. THROAT: No erythema or exudates. NECK: No masses, no JVD. CHEST: No chest wall deformity. LUNGS: Equal air entry with faint crackles in the posterior bases. CVS: S1 and S2 normal with no audible murmur, regular rhythm. ABDOMEN: No hepatosplenomegaly, normal bowel sounds, no guarding or rigidity. SPINE: No scoliosis or deformity SKIN: No rashes CENTRAL NERVOUS SYSTEM: No focal deficits, tone is normal in all 4 extremities. EXTREMITIES: There is no peripheral edema. No clubbing, no cyanosis. Peripheral pulses are intact. Results - Laboratory Findings CBC and BMP: 02/27/22 12:54 02/27/22 12:54 Abnormal lab findings: Abnormal Labs 02/27/22 02/27/22 02/27/22 12:54 12:54 13:07 RBC 3.77 L Hgb 12.6 L MCV 103.7 H Sodium 132 L Carbon Dioxide 31 H BUN 24 H Glucose 105 H Total Bilirubin 1.5 H Total Protein 5.1 L Albumin 2.8 L Urine Mucus Urine Yeast (Budding) Influenza Type A (PCR) Detected A 02/27/22 15:07 RBC Hgb MCV Sodium Carbon Dioxide BUN Glucose Total Bilirubin Total Protein Albumin Urine Mucus Rare H Urine Yeast (Budding) Few H Influenza Type A (PCR) - Diagnostic Findings Chest x-ray: image reviewed CT scan - chest: image reviewed Assessment and Plan Assessment: Generalized weakness, failure to thrive secondary to influenza A infection Dyspnea secondary to some evidence of fluid volume overload versus atypical pneumonia Recent fall with left hip fracture status post repair at [facility] on 01/28/2022 Inpatient rehabilitation at [facility] on [facility] since 01/31/2022 Tested positive for influenza approximately 2 weeks ago Hyperlipidemia Hypertension Benign prosthetic hypertrophy History of seizures had been on Keppra in the outpatient setting, exact diagnosis unclear History of permanent pacemaker implantation Plan: The patient was seen and evaluated Chest x-ray, CAT scan, medications and labs reviewed Continue with DuoNeb inhalations Pulmicort 1 mg twice a day inhalations Continue with Tamiflu Continue IV Solu-Medrol Continue diuretics Lovenox for DVT prophylaxis Awaiting pro calcitonin Awaiting sputum sample We will continue to follow and make further recommendations based on his clinical status I have personally seen and examined the patient, performed the documentation and the assessment and plan as written. Number of minutes spent on the visit: 20.
[2022-02-28] MEDS: MELATONIN 5 MG TABLET PO SCH (15:30)
[2022-02-28] MEDS: BUDESONIDE 1 MG/2 ML NEBU INHALATION SCH (20:33)
[2022-02-28] MEDS: PRAVASTATIN SODIUM 40 MG TAB PO SCH (20:55)
--- NOTE | 2022-02-28 22:06 | P.CONS ---
History of Present Illness - Reason for Consult Consult date: 02/28/22 Influenza Requesting physician: Jake Stapleton - Chief Complaint Increasing shortness of breath x few days - History of Present Illness Patient is 86 year old male with a past medical history significant for hypertension hyperlipidemia BPH congestive heart failure patient recently did have a fall with a left hip fracture status post operative repair at [facility] subsequently the patient was sent to [facility] on the [place] for rehabilitation, patient apparently seemed having a problem with increasing shortness of breath and cough that has been going on for couple of weeks now and the family mention they have been told 1 week he has the morning next week no pneumonia patient has not been sent to the ER for evaluation of increasing weakness that he be getting worse for the last few days and the patient not eating decreased appetite but no nausea no vomiting patient denies high-grade fever or chills has been coming of some sore throat but no URI symptoms, has been complaining of cough which is mild to moderate intensity with some yellow sputum or hemoptysis no pleuritic chest pain with January the patient was evaluated on arrival to the ER the patient was afebrile did have a low-grade fever of 99F patient did have a normal white count of 7.7 patient tested positive for influenza, RSV and covid 19 was negative patient did have a chest x-ray with cardiomegaly and prominent perihilar interstitial lung markings patient was started on Tamiflu admitted to the hospital infectious disease was consulted for further management of antibiotic therapy Review of Systems Positive point has been mentioned in the HPI rest of the systems are negative Medications and Allergies Home Medications Medication Instructions Recorded Confirmed Type Acetaminophen Tab [Tylenol] 650 mg PO Q4H PRN 02/27/22 02/27/22 History Aspirin EC [Ecotrin Low Dose] 81 mg PO DAILY 02/27/22 02/27/22 History Calcium Carbonate [Calcium] 1,200 mg PO HS 02/27/22 02/27/22 History Calcium Carbonate [Tums] 500 mg PO Q12H 02/27/22 02/27/22 History Cholecalciferol [Vitamin D3 (25 50 mcg PO DAILY 02/27/22 02/27/22 History Mcg = 1000 Iu)] Cyanocobalamin [Vitamin B-12] 500 mcg PO DAILY 02/27/22 02/27/22 History Dorzolamide 2% [Trusopt 2%] 1 drop BOTH EYES Q8H 02/27/22 02/27/22 History Furosemide [Lasix] 40 mg PO DAILY@0600 02/27/22 02/27/22 History Isosorbide Mononitrate ER [Imdur] 60 mg PO DAILY 02/27/22 02/27/22 History Lactose-Reduced Food [Ensure Plus] 237 ml PO TID@0900,1300,2100 02/27/22 02/27/22 History Lactulose 20 gm PO BID 02/27/22 02/27/22 History Metoprolol Tartrate [Lopressor] 25 mg PO Q12H 02/27/22 02/27/22 History Omeprazole Magnesium [PriLOSEC OTC] 20 mg PO DAILY@0600 02/27/22 02/27/22 History Pravastatin Sodium [Pravachol] 40 mg PO HS 02/27/22 02/27/22 History Tamsulosin HCl [Flomax] 0.4 mg PO BID 02/27/22 02/27/22 History lisinopriL 2.5 mg PO DAILY 03/02/22 03/02/22 History Allergies Allergy/AdvReac Type Severity Reaction Status Date / Time No Known Allergies Allergy Verified 02/27/22 14:45 Physical Exam Vitals: Vital Signs Temp Pulse Resp BP Pulse Ox 02/28/22 09:45 99 F 94 18 128/82 98 02/28/22 07:53 112 H 02/28/22 07:40 100 02/28/22 05:41 87 16 106/75 95 02/27/22 23:34 99.0 F 86 20 111/75 97 02/27/22 23:30 86 20 115/72 02/27/22 23:00 86 20 126/74 02/27/22 22:30 95 23 112/72 02/27/22 22:00 92 20 112/72 02/27/22 21:30 79 16 127/68 02/27/22 21:00 84 20 111/70 02/27/22 20:30 80 22 100/69 02/27/22 20:00 80 25 H 102/67 02/27/22 19:30 78 25 H 106/66 02/27/22 19:00 78 24 97/65 02/27/22 18:30 80 20 100/66 02/27/22 18:00 81 20 92/63 02/27/22 17:30 76 20 93/71 02/27/22 17:00 73 22 88/58 98 02/27/22 16:30 77 23 102/65 99 02/27/22 16:00 75 20 86/65 99 02/27/22 15:30 76 16 95/59 94 L 02/27/22 15:00 76 16 106/64 96 02/27/22 14:00 91/59 02/27/22 13:30 69 20 88/60 96 02/27/22 13:00 75 23 100/67 97 02/27/22 12:31 98.3 F 75 18 100/67 96 GENERAL DESCRIPTION: Elderly male lying in bed, no distress. No tachypnea or accessory muscle of respiration use. HEENT: Shows Pallor , no scleral icterus. Oral mucous membrane is dry. No pharyn geal erythema or thrush NECK: Trachea central, no thyromegaly. LUNGS: Unlabored breathing. Decreased breath sound at the base. No wheeze or crackle. HEART: S1, S2, regular rate and rhythm. No loud murmur ABDOMEN: Soft, no tenderness , guarding or rigidity, no organomegaly EXTREMITIES: No edema of feet. SKIN: No rash, no masses palpable. NEUROLOGICAL: The patient is awake, alert, oriented x2, mood and affect normal. Results CBC & Chem 7: 03/05/22 11:00 03/05/22 11:00 Labs: Abnormal Lab Results - Last 24 Hours (Table) 02/27/22 02/27/22 02/27/22 Range/Units 12:54 12:54 13:07 RBC 3.77 L (4.30-5.90) m/uL Hgb 12.6 L (13.0-17.5) gm/dL MCV 103.7 H (80.0-100.0) fL Sodium 132 L (137-145) mmol/L Carbon Dioxide 31 H (22-30) mmol/L BUN 24 H (9-20) mg/dL Glucose 105 H (74-99) mg/dL Total Bilirubin 1.5 H (0.2-1.3) mg/dL Total Protein 5.1 L (6.3-8.2) g/dL Albumin 2.8 L (3.5-5.0) g/dL Urine Mucus (None) /hpf Urine Yeast (Budding) (None) /hpf Influenza Type A (PCR) Detected A (Not Detectd) 02/27/22 Range/Units 15:07 RBC (4.30-5.90) m/uL Hgb (13.0-17.5) gm/dL MCV (80.0-100.0) fL Sodium (137-145) mmol/L Carbon Dioxide (22-30) mmol/L BUN (9-20) mg/dL Glucose (74-99) mg/dL Total Bilirubin (0.2-1.3) mg/dL Total Protein (6.3-8.2) g/dL Albumin (3.5-5.0) g/dL Urine Mucus Rare H (None) /hpf Urine Yeast (Budding) Few H (None) /hpf Influenza Type A (PCR) (Not Detectd) Assessment and Plan (1) Influenza A Status: Acute Code(s): J10.1 - FLU DUE TO OTH IDENT INFLUENZA VIRUS W OTH RESP MANIFEST SNOMED Code(s): 136226462 Plan: 1patient is in the hospital with increasing shortness of breath cough and weakness which is likely multifactorial in this patient who did tested positive for influenza A and Moraxella likely contributing to his symptoms, however the patient is also complaining of cough and some yellow sputum will need to rule out secondary bacterial pneumonia, clinical suspicion is low and abscess of f ever and normal white count 2we will obtain sputum for Gram stain and culture 3we will check a pro calcitonin level 4patient will continue with Tamiflu We will follow on clinical condition and cultures to further adjust medication if needed Thank you for this consultation will follow this patient with you Time with Patient: Greater than 30
[2022-02-28] MEDS: NYSTATIN 100,000 UNIT/ML SUSP 500,000 UNIT/5 ML CUP PO SCH (22:13)
[2022-03-01] MEDS: DORZOLAMIDE HCL 2% DROPS 10 ML BTL BOTH EYES SCH ×3 (00:26→17:09)
[2022-03-01 05:40] LABS: ALT 32 U/L (4-49); AST 36 U/L (17-59); African American GFR (CKD) >90 (>60 ml/min/1.73 sqM); Albumin 2.9 g/dL (3.5-5.0); Albumin/Globulin Ratio 1.2; Alkaline Phosphatase 130 U/L (38-126); Anion Gap 5 mmol/L; Blood Urea Nitrogen 25 mg/dL (9-20); Calcium 9.2 mg/dL (8.4-10.2); Carbon Dioxide 28 mmol/L (22-30); Chloride 101 mmol/L (98-107); Globulin 2.4 g/dL; Glucose 128 mg/dL (74-99); Non-African American GFR(CKD) 88 (>60 ml/min/1.73 sqM); Potassium 3.9 mmol/L (3.5-5.1); Sodium 134 mmol/L (137-145); Total Bilirubin 1.2 mg/dL (0.2-1.3); Total Protein 5.3 g/dL (6.3-8.2)
[2022-03-01] MEDS: CYANOCOBALAMIN 500 MCG TAB PO SCH (05:54)
[2022-03-01] MEDS: FUROSEMIDE 40 MG TAB PO SCH (05:54)
[2022-03-01] MEDS: PANTOPRAZOLE 40 MG TABLET PO SCH (05:54)
[2022-03-01 06:17] LABS: Basophils % (A) 0 %; Eosinophils % (A) 0 %; HCT 40.9 % (39.0-53.0); HGB 13.1 gm/dL (13.0-17.5); Lymphocytes # (A) 4.2 k/uL (1.0-4.8); Lymphocytes % (A) 43 %; MCH 33.6 pg (25.0-35.0); MCHC 32.1 g/dL (31.0-37.0); MCV 104.9 fL (80.0-100.0); Macrocytosis Moderate; Mean Platelet Volume 8.1; Monocytes # (A) 0.1 k/uL (0-1.0); Monocytes % (A) 1 %; Neutrophils # (A) 5.2 k/uL (1.3-7.7); Neutrophils % (A) 54 %; Platelet Count 194 k/uL (150-450); RDW 14.8 % (11.5-15.5); WBC 9.6 k/uL (3.8-10.6)
[2022-03-01] MEDS: BUDESONIDE 1 MG/2 ML NEBU INHALATION SCH ×2 (08:18→19:55)
[2022-03-01] MEDS: IPRATROPIUM-ALBUTEROL 3 ML NEB INHALATION SCH ×4 (08:20→19:55)
[2022-03-01] MEDS: methylPREDNISolone SOD SUCCI 40 MG/ML 1 ML VIAL IV SCH (09:41)
[2022-03-01] MEDS: ASPIRIN 81 MG PO SCH (10:15)
[2022-03-01] MEDS: CHOLECALCIFEROL 25 MCG (1000 IU) TABLET PO SCH (10:15)
[2022-03-01] MEDS: ISOSORBIDE MONONITRATE ER 60 MG TAB.ER.24H PO SCH (10:16)
[2022-03-01] MEDS: TAMSULOSIN 0.4 MG CAP.ER.24H PO SCH ×2 (10:16→20:53)
[2022-03-01] MEDS: METOPROLOL TARTRATE 25 MG TAB PO SCH ×2 (10:16→20:53)
[2022-03-01] MEDS: ENOXAPARIN 40 MG/0.4 ML SYRINGE SQ SCH (10:16)
[2022-03-01] MEDS: LACTULOSE 20 GM/30 ML CUP PO SCH ×2 (10:17→21:05)
[2022-03-01] MEDS: NYSTATIN 100,000 UNIT/ML SUSP 500,000 UNIT/5 ML CUP PO SCH ×3 (10:17→17:08)
--- NOTE | 2022-03-01 10:35 | FL ---
Exam Date: 03/01/2022 9:29 AM. Modified barium swallow for dysphagia. Consistencies administered: Various consistency of barium. Fluoro time: 1 minute 55 seconds No images were sent to PACS. Please see speech pathology report. There was deep penetration without e vidence for aspiration worse with thinner consistencies.
[2022-03-01] MEDS ORDERED: FLUCONAZOLE 100 MG TAB PO ONE (11:00)
[2022-03-01] MEDS: levETIRAcetam 500 MG TAB PO SCH ×2 (11:16→20:55)
[2022-03-01] MEDS: OSELTAMIVIR 75 MG CAP PO SCH ×2 (11:16→20:55)
--- NOTE | 2022-03-01 11:42 | P.PN ---
Subjective Progress Note Date: 03/01/22 This is a very pleasant 86-year-old male patient with a known history of hypertension, hyperlipidemia, BPH,, congestive heart failure, AICD placement. In January 2022 the patient had sustained a fall at home and broke his left hip. He was seen at [facility] emergency room and subsequent ab lation count is [facility] [place] [place] for left hip surgery and repair. He was discharged from there on 01/31/2022 to [facility] on the [place]. While there he contracted influenza and had been eating progressively weak. They transferred him to the sick [facility] and he was not receiving any physical therapy. He had been losing a significant amount of weight. He is brought into the emergency room yesterday for an evaluation. White count 7.7. Hemoglobin 12.6. Platelets 196. Sodium 132. Potassium 3.9. BUN 24. Creatinine 0.75. ProBNP 1960. TSH 1.9. Influenza A+ COVID-19 screen negative. RSV screen negative. Pro-calcitonin pending. He is seen today in consultation on the in the emergency department. He is currently sitting up in as a chair. Awake and alert. He appears dehydrated. He is weak and cachectic. He is maintaining O2 saturations in the 90s on room air. Chest x-ray reveals cardiomegaly with prominent perihilar interstitial lung markings consistent with congestive heart failure versus atypical viral pneumonia. Computed tomography scan of the chest revealed bilateral lower lobe dependent reticular groundglass opacities representing atelectasis versus atypical viral pneumonia. Mild COPD changes. Descending thoracic aortic aneurysm measuring 4.3 cm. There is marketed air cardiomegaly and moderate, coronary artery calcifications. He does have dyspnea with minimal exertion. He has currently a dry nonproductive cough. Previously with some yellow phlegm. No fever. No chills. No nausea, vomiting or diarrhea. He has been initiated on Tamiflu, DuoNeb inhalations, Pulmicort inhalations, IV Solu- Medrol. He is remaining on oral diuretics. Lovenox for DVT prophylaxis. Tylenol for pain control. The patient is seen today 03/01/2022 in follow-up on the regular medical floor. He is currently resting comfortably in bed. Awake and alert in no acute distress. Maintaining good O2 saturations in the 90s on room air. Area swallow revealed deep penetration without evidence of aspiration worse with thinner consistencies. Awaiting speech therapy report. Blood cultures reveal no growth. White count 9.6. Hemoglobin 13.1. Platelets 194. Sodium 134. Potassium 3.9. BUN 25. Creatinine 0.66. Glucose 128. Urinalysis clear. He is positive for influenza A. He remains on bronchodilators. Continued on Tamiflu. Remains on oral diuretics. He is incontinent with no accurate I&O. Objective - Vital Signs Vital signs: Vital Signs Temp 98.5 F 03/01/22 07:31 Pulse 80 03/01/22 11:26 Resp 17 03/01/22 07:31 BP 115/79 03/01/22 07:31 Pulse Ox 98 03/01/22 07:31 FiO2 Intake & Output 02/28/22 03/01/22 03/01/22 18:59 06:59 18:59 Intake Total 300 Output Total 200 Balance 100 Weight 61.235 kg 61.235 kg Intake: Oral 300 Output: Urine 200 Other: Voiding Method Diaper Diaper # Voids 1 3 # Bowel Movements 1 2 - Exam GENERAL EXAM: Alert, frail, cachectic very pleasant 86-year-old male, resting comfortably in bed, on room air, fairly comfortable in no apparent distress. HEAD: Normocephalic. EYES: Normal reaction of pupils, equal size. NOSE: Clear with pink turbinates. THROAT: No erythema or exudates. NECK: No masses, no JVD. CHEST: No chest wall deformity. LUNGS: Equal air entry with faint crackles in the posterior bases. CVS: S1 and S2 normal with no audible murmur, regular rhythm. ABDOMEN: No hepatosplenomegaly, normal bowel sounds, no guarding or rigidity. SPINE: No scoliosis or deformity SKIN: No rashes CENTRAL NERVOUS SYSTEM: No focal deficits, tone is normal in all 4 extremities. EXTREMITIES: There is no peripheral edema. No clubbing, no cyanosis. Kimberly pheral pulses are intact. - Labs CBC & Chem 7: 03/01/22 04:58 03/01/22 04:58 Labs: Abnormal Lab Results - Last 24 Hours (Table) 03/01/22 03/01/22 Range/Units 04:58 04:58 RBC 3.90 L (4.30-5.90) m/uL MCV 104.9 H (80.0-100.0) fL Sodium 134 L (137-145) mmol/L BUN 25 H (9-20) mg/dL Glucose 128 H (74-99) mg/dL Alkaline Phosphatase 130 H (38-126) U/L Total Protein 5.3 L (6.3-8.2) g/dL Albumin 2.9 L (3.5-5.0) g/dL Microbiology - Last 24 Hours (Table) 02/27/22 21:55 Blood Culture - Preliminary Blood No Growth after 24 hours 02/27/22 22:00 Blood Culture - Preliminary Blood No Growth after 24 hours Assessment and Plan Assessment: Generalized weakness, failure to thrive secondary to influenza A infection. Modified barium swallow results pending. Dyspnea secondary to some evidence of fluid volume overload. Remains on oral diuretics. No evidence of pneumonia. Pro calcitonin 0.07. Recent fall with left hip fracture status post repair at [facility] on 01/28/2022 Inpatient rehabilitation at [facility] since 01/31/2022 Tested positive for influenza approximately 2 weeks ago Hyperlipidemia Hypertension Benign prosthetic hypertrophy History of seizures had been on Keppra in the outpatient setting, exact diagnosis unclear History of permanent pacemaker implantation Plan: The patient was seen and evaluated Medications and labs reviewed Continue bronchodilators Continue Tamiflu Discontinue IV Solu-Medrol Modified barium swallow results pending Speech therapy consulted We will continue to follow I have personally seen and examined the patient, performed the documentation and the assessment and plan as written. Number of minutes spent on the visit: 10.
--- NOTE | 2022-03-01 18:05 | P.PN ---
Progress Note - Text Progress Note Date: 03/01/22 Hospital course: I assumed care of the patient today. Patient follows with Dr. Morris Thibodeaux. 03/01/2022: [facility]. Patient had been at [facility] for the last 1 month. Chronic stable medical conditions included EPH, PAD, GERD, hypertension, hyperlipidemia, dysarthria, CAD with bypass, seizures, anemia, AICD,. Patient is sent joints [facility] from January 26 through January 31 with left femur fracture followed by IM nailing by . Patient's weightbearing as tolerated. Patient was seen by speech therapy. Has been asked aspirating with thin liquids. Discussed with the therapist. Put on nectar thick liquids, supervised. No straws. Patient records from [facility] reviewed. Patient sitting up in a chair. This feeling weak and tired. Patient has no respiratory symptoms. He tested positive for influenza A. On Tamiflu. Active Medications Acetaminophen (Acetaminophen Tab 325 Mg Tab) 650 mg PO Q4H PRN PRN Reason: General Discomfort Last Admin: 02/28/22 09:51 Dose: 650 mg Albuterol/Ipratropium (Ipratropium-Albuterol 3 Ml Neb) 3 ml INHALATION RT-QID [facility] Last Admin: 03/01/22 15:26 Dose: 3 ml Aspirin (Aspirin 81 Mg) 81 mg PO DAILY [facility] Last Admin: 03/01/22 10:15 Dose: Not Given Budesonide (Budesonide 1 Mg/2 Ml Nebu) 1 mg INHALATION RT-BID [facility] Last Admin: 03/01/22 08:18 Dose: 1 mg Calcium Carbonate/Glycine (Calcium Carbonate 500 Mg Chewable) 1,000 mg PO HS [facility] Last Admin: 02/28/22 01:46 Dose: Not Given Cholecalciferol (Cholecalciferol 25 Mcg (1000 Iu) Tablet) 50 mcg PO DAILY [facility] Last Admin: 03/01/22 10:15 Dose: Not Given Cyanocobalamin (Cyanocobalamin 500 Mcg Tab) 500 mcg PO W/BRKFST [facility] Last Admin: 03/01/22 05:54 Dose: 500 mcg Dorzolamide HCl (Dorzolamide Hcl 2% Drops 10 Ml Btl) 1 drops BOTH EYES Q8H [facility] Last Admin: 03/01/22 17:09 Dose: 1 drops Enoxaparin Sodium (Enoxaparin 40 Mg/0.4 Ml Syringe) 40 mg SQ DAILY [facility] Last Admin: 03/01/22 10:16 Dose: 40 mg Fluconazole (Fluconazole 100 Mg Tab) 100 mg PO DAILY [facility]; Protocol Furosemide (Furosemide 40 Mg Tab) 40 mg PO DAILY@0600 [facility] Last Admin: 03/01/22 05:54 Dose: 40 mg Isosorbide Mononitrate (Isosorbide Mononitrate Er 60 Mg Tab.Er.24h) 60 mg PO DAILY [facility] Last Admin: 03/01/22 10:16 Dose: 60 mg Lactulose (Lactulose 20 Gm/30 Ml Cup) 20 gm PO BID [facility] Last Admin: 03/01/22 10:17 Dose: Not Given Levetiracetam (Levetiracetam 500 Mg Tab) 500 mg PO Q12H [facility] Last Admin: 03/01/22 11:16 Dose: 500 mg Melatonin (Melatonin 5 Mg Tablet) 5 mg PO [facility] Last Admin: 02/28/22 15:30 Dose: Not Given Metoprolol Tartrate (Metoprolol Tartrate 25 Mg Tab) 25 mg PO Q12H [facility] Last Admin: 03/01/22 10:16 Dose: 25 mg Naloxone HCl (Naloxone 0.4 Mg/Ml 1 Ml Vial) 0.2 mg IV Q2M PRN PRN Reason: Opioid Reversal Nystatin (Nystatin 100,000 Unit/Ml Susp 500,000 Unit/5 Ml Cup) 500,000 unit PO QID [facility]; Protocol Last Admin: 03/01/22 17:08 Dose: 500,000 unit Oseltamivir Phosphate (Oseltamivir 75 Mg Cap) 75 mg PO Q12HR [facility]; Protocol Stop: 03/04/22 21:01 Last Admin: 03/01/22 11:16 Dose: 75 mg Pantoprazole Sodium (Pantoprazole 40 Mg Tablet) 40 mg PO DAILY@0600 [facility] Last Admin: 03/01/22 05:54 Dose: 40 mg Pravastatin Sodium (Pravastatin Sodium 40 Mg Tab) 40 mg PO HS [facility] Last Admin: 02/28/22 20:55 Dose: 40 mg Tamsulosin HCl (Tamsulosin 0.4 Mg Cap.Er.24h) 0.4 mg PO BID [facility] Last Admin: 03/01/22 10:16 Dose: Not Given On examination: VITAL SIGNS: [98.7, 100, 17, 1 35 x 71, 97% on room air] GENERAL APPEARANCE: BMI 20.5, sitting up in a chair HEENT: Normal external appearance of nose and ear. Oral cavity white coated tongue. EYES: Pupils equal. Conjunctiva normal. NECK: JVD not raised. Mass not palpable. RESPIRATORY: Respiratory effort normal. Lungs clear to auscultation. CARDIOVASCULAR: First and second sounds normal. No edema. ABDOMEN: Soft. Liver and spleen not palpable. No tenderness. No mass palpable. MUSCULAR skeletal: Evidence of OA. Loss of muscle mass. PSYCHIATRY: Patient able to answer simple questions INVESTIGATIONS, reviewed in the clinical context: Modified barium swallow: Deep penetration without evidence of aspiration worse with thin liquids 03/01/2022: White count 9.6 and globin 13.1 platelets 94 potassium 3.9 creatinine 0.66 albumin 2.9 Influenza type A: Detected CT chest: Bilateral lower lobe dependent critically of groundglass opacities, mild COPD changes. Descending code thoracic aorta aneurysm 4.37. Moderate cardiomegaly. Assessment and plan: -Chronic dysphagia with aspiration to thin liquids. Showed aspiration on modified barium swallow. On nectar thick liquids. On his to 1 supervision. No straws. -BPH Flomax -PAD Aspirin, Pravachol -Oropharyngeal candidiasis Diflucan -GERD Prilosec -CAD with prior history of bypass Aspirin, Lopressor, Imdur -Hyperlipidemia Pravachol -Seizure disorder -AICD -Moderate to severe protein calorie malnutrition Nutritional supplement -01/26/2022 left femur fracture -IM nailing at [facility]. PT OT. Not weightbearing as tolerated -Full code Today total of 1 hour was spent in patient care. Including discussion with the nurse,'s therapist, review of records from [facility]. And discussion with the patient.
[2022-03-01] MEDS: ACETAMINOPHEN TAB 325 MG TAB PO PRN (19:36)
[2022-03-01] MEDS: PRAVASTATIN SODIUM 40 MG TAB PO SCH (20:53)
[2022-03-01] MEDS: CALCIUM CARBONATE 500 MG CHEWABLE PO SCH (20:53)
[2022-03-01] MEDS: MELATONIN 5 MG TABLET PO SCH (20:53)
--- NOTE | 2022-03-01 22:59 | P.PN ---
Subjective Progress Note Date: 03/01/22 Principal diagnosis: Acute influenza and pneumonia Patient is 86 year old male with a past medical history significant for hypertension hyperlipidemia BPH congestive heart failure patient recently did have a fall with a left hip fracture status post operative repair currently undergoing rehab at the local residential has been sent to the ER for evaluation of increasing shortness of breath and cough this patient has been diagnosed with acute influenza. On today's evaluation that is 03/01/2022, the patient denies having any fever or dizziness is currently breathing comfortably on room air. Denies having any chest pain cough has decreased intensity is mostly dry in nature no nausea no vomiting no abdominal pain no diarrhea Objective - Vital Signs Vital signs: Vital Signs Temp 98.5 F 03/01/22 07:31 Pulse 80 03/01/22 11:26 Resp 17 03/01/22 07:31 BP 115/79 03/01/22 07:31 Pulse Ox 98 03/01/22 07:31 FiO2 Intake & Output 02/28/22 03/01/22 03/01/22 18:59 06:59 18:59 Intake Total 300 Output Total 200 300 Balance 100 -300 Weight 61.235 kg 61.235 kg Intake: Oral 300 Output: Urine 200 300 Other: Voiding Method Diaper Diaper # Voids 1 3 # Bowel Movements 1 2 - Exam GENERAL DESCRIPTION: An elderly male lying in bed in no distress RESPIRATORY SYSTEM: Unlabored breathing , decreased breath sounds at bases HEART: S1 S2 regular rate and rhythm , ABDOMEN: Soft , no tenderness EXTREMITIES: No edema feet - Labs CBC & Chem 7: 03/01/22 04:58 03/01/22 04:58 Labs: Abnormal Lab Results - Last 24 Hours (Table) 03/01/22 03/01/22 Range/Units 04:58 04:58 RBC 3.90 L (4.30-5.90) m/uL MCV 104.9 H (80.0-100.0) fL Sodium 134 L (137-145) mmol/L BUN 25 H (9-20) mg/dL Glucose 128 H (74-99) mg/dL Alkaline Phosphatase 130 H (38-126) U/L Total Protein 5.3 L (6.3-8.2) g/dL Albumin 2.9 L (3.5-5.0) g/dL Microbiology - Last 24 Hours (Table) 02/27/22 21:55 Blood Culture - Preliminary Blood No Growth after 24 hours 02/27/22 22:00 Blood Culture - Preliminary Blood No Growth after 24 hours Assessment and Plan (1) Influenza A Current Visit: No Status: Acute Code(s): J10.1 - FLU DUE TO OTH IDENT INFLUE NZA VIRUS W OTH RESP MANIFEST SNOMED Code(s): 687109894 Plan: 1patient is in the hospital with increasing shortness of breath cough and weakness which is likely multifactorial in this patient who did tested positive for influenza A and Moraxella likely contributing to his symptoms, however the patient is also complaining of cough and some yellow sputum will need to rule out secondary bacterial pneumonia, clinical suspicion is low for pneumonia as the patient did not have fever and normal white count, patient did have normal pro calcitonin 2patient will continue with Tamiflu and monitor clinical course closely Daughter at the bedside questions and concerns were answered Time with Patient: Less than 30
[2022-03-02] MEDS: DORZOLAMIDE HCL 2% DROPS 10 ML BTL BOTH EYES SCH ×3 (02:03→17:52)
[2022-03-02] MEDS: PANTOPRAZOLE 40 MG TABLET PO SCH (05:39)
[2022-03-02] MEDS: NYSTATIN 100,000 UNIT/ML SUSP 500,000 UNIT/5 ML CUP PO SCH ×5 (05:39→20:00)
[2022-03-02] MEDS: CYANOCOBALAMIN 500 MCG TAB PO SCH (05:39)
[2022-03-02] MEDS: IPRATROPIUM-ALBUTEROL 3 ML NEB INHALATION SCH ×4 (08:40→21:00)
[2022-03-02] MEDS: BUDESONIDE 1 MG/2 ML NEBU INHALATION SCH ×2 (08:40→21:00)
[2022-03-02] MEDS ORDERED: FLUCONAZOLE 100 MG TAB PO SCH (09:00)
[2022-03-02] MEDS: ASPIRIN 81 MG PO SCH (09:22)
[2022-03-02] MEDS: CHOLECALCIFEROL 25 MCG (1000 IU) TABLET PO SCH (09:22)
[2022-03-02] MEDS: ENOXAPARIN 40 MG/0.4 ML SYRINGE SQ SCH (09:25)
[2022-03-02] MEDS: LACTULOSE 20 GM/30 ML CUP PO SCH ×2 (09:27→20:00)
[2022-03-02] MEDS: TAMSULOSIN 0.4 MG CAP.ER.24H PO SCH ×2 (10:03→20:00)
[2022-03-02] MEDS: METOPROLOL TARTRATE 25 MG TAB PO SCH (10:03)
[2022-03-02] MEDS: OSELTAMIVIR 75 MG CAP PO SCH ×2 (10:03→20:00)
[2022-03-02] MEDS: levETIRAcetam 500 MG TAB PO SCH (10:03)
[2022-03-02] MEDS: ISOSORBIDE MONONITRATE ER 60 MG TAB.ER.24H PO SCH (10:03)
--- NOTE | 2022-03-02 10:56 | P.PN ---
Subjective Progress Note Date: 03/02/22 Principal diagnosis: Weakness. This is a very pleasant 86-year-old male patient with a known history of hypertension, hyperlipidemia, BPH,, congestive heart failure, AICD placement. In January 2022 the patient had sustained a fall at home and broke his left hip. He was seen at [facility] emergency room and subsequent ablation count is [facility] for left hip surgery and repair. He was discharged from there on 01/31/2022 to [facility] [place]. While there he contracted influenza and had been eating progressively weak. They transferred him to the [facility] [place] and he was not receiving any physical therapy. He had been losing a significant amount of weight. He is brought into the emergency room yesterday for an evaluation. White count 7.7. Hemoglobin 12.6. Platelets 196. Sodium 132. Potassium 3.9. BUN 24. Creatinine 0.75. ProBNP 1960. TSH 1.9. Influenza A+ COVID-19 screen negative. RSV screen negative. Pro-calcitonin pending. He is seen today in consultation on the in the emergency department. He is currently sitting up in as a chair. Awake and alert. He appears dehydrated. He is weak and cachectic. He is maintaining O2 saturations in the 90s on room air. Chest x-ray reveals cardiomegaly with prominent perihilar interstitial lung markings consistent with congestive heart failure versus atypical viral pneumonia. Computed tomography scan of the chest revealed bilateral lower lobe dependent reticular groundglass opacities representing atelectasis versus atypical viral pneumonia. Mild COPD changes. Descending thoracic aortic aneurysm measuring 4.3 cm. There is marketed air cardiomegaly and moderate, coronary artery calcifications. He does have dyspnea with minimal exertion. He has currently a dry nonproductive cough. Previously with some yellow phlegm. No fever. No chills. No nausea, vomiting or diarrhea. He has been initiated on Tamiflu, DuoNeb inhalations, Pulmicort inhalations, IV Solu- Medrol. He is remaining on oral diuretics. Lovenox for DVT prophylaxis. Tylenol for pain control. The patient is seen today 03/01/2022 in follow-up on the regular medical floor. He is currently resting comfortably in bed. Awake and alert in no acute distress. Maintaining good O2 saturations in the 90s on room air. Area swallow revealed deep penetration without evidence of aspiration worse with thinner c onsistencies. Awaiting speech therapy report. Blood cultures reveal no growth. White count 9.6. Hemoglobin 13.1. Platelets 194. Sodium 134. Potassium 3.9. BUN 25. Creatinine 0.66. Glucose 128. Urinalysis clear. He is positive for influenza A. He remains on bronchodilators. Continued on Tamiflu. Remains on oral diuretics. He is incontinent with no accurate I&O. Progress note dated 03/02/2022. The patient is seen today in room 466. The patient's on room air. He's not receiving any IV fluids. The patient appears to be very weak. The results of this video stroboscopic evaluation and evaluation by speech pathology are reviewed. We are going to reach out to the family and talked to them about the possibility of a feeding tube. Lost quite a bit of weight recently, and is very cachectic. No new labs today. The pro-calcitonin level is very low at 0.07. Objective - Vital Signs Vital signs: Vital Signs Temp 101.9 F H 03/02/22 07:21 Pulse 80 03/02/22 08:51 Resp 20 03/02/22 07:21 BP 133/79 03/02/22 07:21 Pulse Ox 94 L 03/02/22 08:40 FiO2 Intake & Output 03/01/22 03/02/22 03/02/22 18:59 06:59 18:59 Intake Total 300 Output Total 300 650 350 Balance 0 -650 -350 Weight 61.235 kg Intake: Oral 300 Output: Urine 300 650 350 Other: Voiding Method Diaper Diaper External Catheter # Voids 1 # Bowel Movements 1 1 - Exam No acute distress, oriented, but very weak appearing. HEENT examination is grossly unremarkable. Neck supple. Full range of motion. No adenopathy thyromegaly or neck vein distention. Cardiovascular examination reveals regular rhythm rate. S1-S2 normal. No S3 or S4. No discernible murmur noted. Heart rate 80 bpm. Lungs reveal scattered bilateral rhonchi. No distinct wheezes. A few crackles. Breath sounds equal bilaterally. Room air saturation is 94%. Abdomen soft bowel sounds are heard. No masses or tenderness. Extremities are intact. No cyanosis clubbing or edema. Skin is without rash or lesion. Neurologic examination is brief but nonfocal. - Labs CBC & Chem 7: 03/01/22 04:58 03/01/22 04:58 Labs: Microbiology - Last 24 Hours (Table) 03/01/22 19:57 Gram Stain - Preliminary Sputum Sputum Culture - Preliminary 02/27/22 22:00 Blood Culture - Preliminary Blood No Growth after 48 hours 02/27/22 21:55 Blood Culture - Preliminary Blood No Growth after 48 hours Assessment and Plan Assessment: Generalized weakness, failure to thrive secondary to influenza A infection. Dyspnea secondary to fluid volume overload. Remains on oral diuretics. No evidence of pneumonia. Pro calcitonin 0.07. Recent fall with left [place] fracture [place] [facility] [place] Inpatient rehabilitation at [facility], since 01/31/2022. Tested positive for influenza approximately 2 weeks ago. Hyperlipidemia. Hypertension. Benign prosthetic hypertrophy. History of seizures. History of permanent pacemaker implantation. Plan: Plan dated 03/02/2022. Our team will check with the family about a feeding tube. Additional recom mendations and suggestions are forthcoming. Labs, x-rays, and medications are reviewed. The patient is very weak, and quite cachectic. Recommendations and suggestions are forthcoming. Medications are reviewed, and are appropriate. Time with Patient: Less than 30
--- NOTE | 2022-03-02 13:13 | P.PN ---
Subjective Progress Note Date: 03/02/22 Principal diagnosis: Acute influenza and pneumonia Patient is 86 year old male with a past medical history significant for hypertension hyperlipidemia BPH congestive heart failure patient recently did have a fall with a left hip fracture status post operative repair currently [facility] has been sent to the ER for evaluation of increasing shortness of breath and cough this patient has been diagnosed with acute influenza. On today's evaluation that is 03/02/2022, the patient did spike a fever of 101F last evening and this morning, I was not notified, the patient is currently breathing comfortably on room air. The patient denies having any chest pain cough has decreased intensity and not bringing up any sputum, no nausea no vomi ting no abdominal pain no diarrhea Objective - Vital Signs Vital signs: Vital Signs Temp 101.9 F H 03/02/22 07:21 Pulse 78 03/02/22 12:15 Resp 20 03/02/22 07:21 BP 133/79 03/02/22 07:21 Pulse Ox 94 L 03/02/22 08:40 FiO2 Intake & Output 03/01/22 03/02/22 03/02/22 18:59 06:59 18:59 Intake Total 300 Output Total 300 650 350 Balance 0 -650 -350 Weight 61.235 kg Intake: Oral 300 Output: Urine 300 650 350 Other: Voiding Method Diaper Diaper External Catheter # Voids 1 # Bowel Movements 1 1 1 - Exam GENERAL DESCRIPTION: An elderly male lying in bed in no distress RESPIRATORY SYSTEM: Unlabored breathing , decreased breath sounds at bases HEART: S1 S2 regular rate and rhythm , ABDOMEN: Soft , no tenderness EXTREMITIES: No edema feet - Labs CBC & Chem 7: 03/01/22 04:58 03/01/22 04:58 Labs: Microbiology - Last 24 Hours (Table) 03/01/22 19:57 Gram Stain - Preliminary Sputum Sputum Culture - Preliminary 02/27/22 22:00 Blood Culture - Preliminary Blood No Growth after 48 hours 02/27/22 21:55 Blood Culture - Preliminary Blood No Growth after 48 hours Assessment and Plan (1) Influenza A Current Visit: No Status: Acute Code(s): J10.1 - FLU DUE TO OTH IDENT INFLUENZA VIRUS W OTH RESP MANIFEST SNOMED Code(s): 595674643 Plan: 1patient is in the hospital with increasing shortness of breath cough and weakness which is likely multifactorial in this patient who did tested positive for influenza A for which the patient is currently covered with Tamiflu and will be continued 2-patient did have a new fever last night and this morning, we will repeat blood culture CRP pro calcitonin repeat a chest x-ray , will empirically add Zosyn while waiting for the workup to be completed Family the bedside questions were answered Time with Patient: Greater than 30
[2022-03-02 14:14] LABS: Basophils % (A) 0 %; Eosinophils % (A) 0 %; HCT 45.1 % (39.0-53.0); HGB 14.4 gm/dL (13.0-17.5); Lymphocytes # (A) 4.9 k/uL (1.0-4.8); Lymphocytes % (A) 57 %; MCH 33.2 pg (25.0-35.0); MCHC 31.9 g/dL (31.0-37.0); MCV 104.2 fL (80.0-100.0); Macrocytosis Moderate; Mean Platelet Volume 7.8; Monocytes # (A) 0.1 k/uL (0-1.0); Monocytes % (A) 1 %; Neutrophils # (A) 3.3 k/uL (1.3-7.7); Neutrophils % (A) 39 %; Platelet Count 165 k/uL (150-450); RBC 4.33 m/uL (4.30-5.90); WBC 8.5 k/uL (3.8-10.6)
[2022-03-02] MEDS: PANTOPRAZOLE 40 MG/10 ML VIAL IV SCH (14:19)
[2022-03-02 14:28] LABS: ALT 37 U/L (4-49); AST 44 U/L (17-59); African American GFR (CKD) >90 (>60 ml/min/1.73 sqM); Albumin 2.9 g/dL (3.5-5.0); Albumin/Globulin Ratio 1.1; Alkaline Phosphatase 134 U/L (38-126); Anion Gap 4 mmol/L; Blood Urea Nitrogen 28 mg/dL (9-20); C Reactive Protein 6.1 mg/dL (<1.0); Carbon Dioxide 30 mmol/L (22-30); Chloride 103 mmol/L (98-107); Globulin 2.6 g/dL; Glucose 123 mg/dL (74-99); Non-African American GFR(CKD) 82 (>60 ml/min/1.73 sqM); Potassium 3.3 mmol/L (3.5-5.1); Sodium 137 mmol/L (137-145); Total Bilirubin 1.5 mg/dL (0.2-1.3); Total Protein 5.5 g/dL (6.3-8.2)
--- NOTE | 2022-03-02 14:41 | P.GSCN ---
History of Present Illness Consult date: 03/02/22 History of present illness: CHIEF COMPLAINT: Weakness Reason for consult: PEG tube placement HISTORY OF PRESENT ILLNESS: This is a 86-year-old male who presented to the hospital with complaints of weakness. He has had difficulty with swallowing. His oral intake has decreased. He failed his swallowing eval with evidence of aspiration. Patient with failure to thrive. He also was influenza A positive. Surgical service consulted for PEG tube placement. Per nursing staff patient has had some tachycardia he has been unable to get his metoprolol PAST MEDICAL HISTORY: Heart failure, COPD, HI, seizure, history of left femur fracture 01/26/2022 with orthopedic surgical intervention PAST SURGICAL HISTORY: Defibrillator MEDICATIONS: See below ALLERGIES: See below SOCIAL HISTORY: No illicit drug use. REVIEW OF SYSTEMS: CONSTITUTIONAL: Denies fever or chills. HEENT: Denies blurred vision, vision changes, or eye pain. Denies hemoptysis CARDIOVASCULAR: Denies chest pain or pressure. RESPIRATORY: No shortness of breath. GASTROINTESTINAL: See HPI for pertinent findings HEMATOLOGIC: Denies bleeding disorders. GENITOURINARY: Denies any blood in urine or increased urinary frequency. SKIN: Denies pruitis. Denies rash. PHYSICAL EXAM: VITAL SIGNS: Reviewed GENERAL: no acute distress. HEENT: No sclera icterus. Extraocular movements grossly intact. Moist buccal mucosa. Head is atraumatic, normocephalic. No nasal drainage. ABDOMEN: Soft. Nondistended. Nontender NEUROLOGIC: Alert and oriented. Cranial nerves II through XII grossly intact. LABORATORY DATA: WBC is 8.5 Hgb 14.4 platelets 165 Sodium 137 potassium 3.3 creatinine 0.78 Total bilirubin 1.5 AST 44 ALT 37 alk phos 134 Influenza A detected Albumin 2.9 IMAGING: ASSESSMENT: 1. Dysphagia 2. Severe protein calorie malnutrition 3. Failed swallow eval with evidence of aspiration PLAN: -Patient scheduled for PEG tube placement today with Dr. tapia -Keep patient nothing by mouth Physician Optical Laboratory Technician note has been reviewed by physician. Signing provider agrees with the documented findings, assessment, and plan of care. Past Medical History Past Medical History: Heart Failure, COPD, Myocardial Infarction (HI), Pneumonia Additional Past Medical History / Comment(s): HI 1985, arthritis Last Myocardial Infarction Date:: 1985 History of Any Multi-Drug Resistant Organisms: None Reported Past Surgical History: Back Surgery, Orthopedic Surgery, Pacemaker Additional Past Surgical History / Comment(s): left hip surgery, Pacemaker/Defib implantation Past Anesthesia/Blood Transfusion Reactions: No Reported Reaction Type of Cardiac Device: AICD Device Placement Date:: 2019 Smoking Status: Never smoker Medications and Allergies Home Medications Medication Instructions Recorded Confirmed Type Acetaminophen Tab [Tylenol] 650 mg PO Q4H PRN 02/27/22 02/27/22 History Aspirin EC [Ecotrin Low Dose] 81 mg PO DAILY 02/27/22 02/27/22 History Calcium Carbonate [Calcium] 1,200 mg PO HS 02/27/22 02/27/22 History Calcium Carbonate [Tums] 500 mg PO Q12H 02/27/22 02/27/22 History Cholecalciferol [Vitamin D3 (25 50 mcg PO DAILY 02/27/22 02/27/22 History Mcg = 1000 Iu)] Cyanocobalamin [Vitamin B-12] 500 mcg PO DAILY 02/27/22 02/27/22 History Dorzolamide 2% [Trusopt 2%] 1 drop BOTH EYES Q8H 02/27/22 02/27/22 History Furosemide [Lasix] 40 mg PO DAILY@0600 02/27/22 02/27/22 History Isosorbide Mononitrate ER [Imdur] 60 mg PO DAILY 02/27/22 02/27/22 History Lactose-Reduced Food [Ensure Plus] 237 ml PO TID@0900,1300,2100 02/27/2202/27 History Lactulose 20 gm PO BID 02/27/22 02/27/22 History Metoprolol Tartrate [Lopressor] 25 mg PO Q12H 02/27/22 02/27/22 History Omeprazole Magnesium [PriLOSEC OTC] 20 mg PO DAILY@0600 02/27/22 02/27/22 History Pravastatin Sodium [Pravachol] 40 mg PO HS 02/27/22 02/27/22 History Tamsulosin HCl [Flomax] 0.4 mg PO BID 02/27/22 02/27/22 History Allergies Allergy/AdvReac Type Severity Reaction Status Date / Time No Known Allergies Allergy Verified 02/27/22 14:45 Surgical - Exam Vital Signs Temp Pulse Resp BP Pulse Ox 98.3 F 75 18 100/67 96 02/27/22 12:31 02/27/22 12:31 02/27/22 12:31 02/27/22 12:31 02/27/22 12:31 Results - Labs 03/02/22 13:55 03/02/22 13:55 Abnormal Lab Results - Last 24 Hours (Table) 03/02/22 03/02/22 Range/Units 13:55 13:55 MCV 104.2 H (80.0-100.0) fL Lymphocytes # 4.9 H (1.0-4.8) k/uL Potassium 3.3 L (3.5-5.1) mmol/L BUN 28 H (9-20) mg/dL Glucose 123 H (74-99) mg/dL Total Bilirubin 1.5 H (0.2-1.3) mg/dL Alkaline Phosphatase 134 H (38-126) U/L C-Reactive Protein 6.1 H (<1.0) mg/dL Total Protein 5.5 L (6.3-8.2) g/dL Albumin 2.9 L (3.5-5.0) g/dL Microbiology - Last 24 Hours (Table) 03/01/22 19:57 Gram Stain - Preliminary Sputum Sputum Culture - Preliminary 02/27/22 22:00 Blood Culture - Preliminary Blood No Growth after 48 hours 02/27/22 21:55 Blood Culture - Preliminary Blood No Growth after 48 hours Diabetes panel 03/02/22 Range/Units 13:55 Sodium 137 (137-145) mmol/L Potassium 3.3 L (3.5-5.1) mmol/L Chloride 103 (98-107) mmol/L Carbon Dioxide 30 (22-30) mmol/L BUN 28 H (9-20) mg/dL Creatinine 0.78 (0.66-1.25) mg/dL Glucose 123 H (74-99) mg/dL Calcium 9.0 (8.4-10.2) mg/dL AST 44 (17-59) U/L ALT 37 (4-49) U/L Alkaline Phosphatase 134 H (38-126) U/L Total Protein 5.5 L (6.3-8.2) g/dL Albumin 2.9 L (3.5-5.0) g/dL Calcium panel 03/02/22 Range/Units 13:55 Calcium 9.0 (8.4-10.2) mg/dL Albumin 2.9 L (3.5-5.0) g/dL Pituitary panel 03/02/22 Range/Units 13:55 Sodium 137 (137-145) mmol/L Potassium 3.3 L (3.5-5.1) mmol/L Chloride 103 (98-107) mmol/L Carbon Dioxide 30 (22-30) mmol/L BUN 28 H (9-20) mg/dL Creatinine 0.78 (0.66-1.25) mg/dL Glucose 123 H (74-99) mg/dL Calcium 9.0 (8.4-10.2) mg/dL Adrenal panel 03/02/22 Range/Units 13:55 Sodium 137 (137-145) mmol/L Potassium 3.3 L (3.5-5.1) mmol/L Chloride 103 (98-107) mmol/L Carbon Dioxide 30 (22-30) mmol/L BUN 28 H (9-20) mg/dL Creatinine 0.78 (0.66-1.25) mg/dL Glucose 123 H (74-99) mg/dL Calcium 9.0 (8.4-10.2) mg/dL Total Bilirubin 1.5 H (0.2-1.3) mg/dL AST 44 (17-59) U/L ALT 37 (4-49) U/L Alkaline Phosphatase 134 H (38-126) U/L Total Protein 5.5 L (6.3-8.2) g/dL Albumin 2.9 L (3.5-5.0) g/dL
--- NOTE | 2022-03-02 15:49 | XR ---
EXAMINATION TYPE: XR chest 2V DATE OF EXAM: 03/02/2022 COMPARISON: 02/27/2022 INDICATION: Fever influenza TECHNIQUE: Frontal and lateral views of the chest are obtained. FINDINGS: The heart size is enlarged. Pacemaker overlies left chest. The pulmonary vasculature is normal. The lungs are clear. Chronic lacunar catheter on the left is evident. IMPRESSION: 1. Mild cardiomegaly
[2022-03-02] MEDS: FLUCONAZOLE IN NACL,ISO-OSM 100 MG in SALINE 1 50ML.BAG IVPB SCH (15:53)
[2022-03-02] MEDS ORDERED: levETIRAcetam IV 500 MG in SODIUM CHLORIDE 0.9% 100 ML IVPB SCH (16:00)
[2022-03-02] MEDS ORDERED: MD COMMUNICATION TO PHARMACY 1 EACH MISC PO PRN (16:19)
[2022-03-02] MEDS ORDERED: IV FLUID CONTINUATION 1,000 ML IV ONE (16:24)
[2022-03-02] MEDS ORDERED: PROPOFOL 10 MG/ML 20 ML VIAL IV ONE (16:26)
--- NOTE | 2022-03-02 16:26 | P.PN ---
Progress Note - Text Progress Note Date: 03/02/22 Hospital course: I assumed care of the patient today. Patient follows with Dr. Morris Thibodeaux. 03/01/2022: Patient was sent to the [facility] for weakness. Patient had been at [facility] for the last 1 month. Chronic stable medical conditions included EPH, PAD, GERD, hypertension, hyperlipidemia, dysarthria, CAD with bypass, seizures, anemia, AICD,. Patient is sent joints [facility] from January 26 through January 31 with left femur fracture followed by IM nailing by . Patient's weightbearing as tolerated. Patient was seen by speech therapy. Has been asked aspirating with thin liquids. Discussed with the therapist. Put on nectar thick liquids, supervised. No straws. Patient records from [facility] reviewed. Patient sitting up in a chair. This feeling weak and tired. Patient has no respiratory symptoms. He tested positive for influenza A. On Tamiflu. 03/02/2022: Patient choking even with liquids. Speech therapy communicated that patient should be made nothing by mouth. Patient also had a short run of V. tach off 5 beats. Unable to take his medications. Had a lengthy discussion with patient's and son at the bedside. Agreeable to NG tube.. Nurse called me later unable to place NG tube. Spoke to Dr. Renee from general surgery. Should be able to place a PEG tube this evening. Family agreeable to the same. Patient tired. Sometimes bouts of coughing. Family informed nurse that patient was taken off Keppra prior to going to [facility] and she has not had been continued. Hence and is being discontinued. Communicated to patient. Active Medications Acetaminophen (Acetaminophen Tab 325 Mg Tab) 650 mg PO Q4H PRN PRN Reason: General Discomfort Last Admin: 03/01/22 19:36 Dose: 650 mg Albuterol/Ipratropium (Ipratropium-Albuterol 3 Ml Neb) 3 ml INHALATION RT-QID [facility] Last Admin: 03/02/22 16:13 Dose: Not Given Aspirin (Aspirin 81 Mg) 81 mg PO DAILY [facility] Last Admin: 03/02/22 09:22 Dose: Not Given Budesonide (Budesonide 1 Mg/2 Ml Nebu) 1 mg INHALATION RT-BID [facility] Last Admin: 03/02/22 08:40 Dose: 1 mg Calcium Carbonate/Glycine (Calcium Carbonate 500 Mg Chewable) 1,000 mg PO HS [facility] Last Admin: 03/01/22 20:53 Dose: 1,000 mg Cholecalciferol (Cholecalciferol 25 Mcg (1000 Iu) Tablet) 50 mcg PO DAILY [facility] Last Admin: 03/02/22 09:22 Dose: Not Given Cyanocobalamin (Cyanocobalamin 500 Mcg Tab) 500 mcg PO W/BRKFST [facility] Last Admin: 03/02/22 05:39 Dose: Not Given Dorzolamide HCl (Dorzolamide Hcl 2% Drops 10 Ml Btl) 1 drops BOTH EYES Q8H [facility] Last Admin: 03/02/22 09:25 Dose: 1 drops Enoxaparin Sodium (Enoxaparin 40 Mg/0.4 Ml Syringe) 40 mg SQ DAILY [facility] Last Admin: 03/02/22 09:25 Dose: 40 mg Piperacillin Sod/Tazobactam (Sod 3.375 gm/ Sodium Chloride) 100 mls @ 25 mls/hr IVPB Q8HR [facility]; Protocol Fluconazole/Sodium Chloride (100 mg/ IV Solution) 50 mls @ 50 mls/hr IVPB Q24H [facility] Last Admin: 03/02/22 15:53 Dose: 50 mls/hr Isosorbide Mononitrate (Isosorbide Mononitrate Er 60 Mg Tab.Er.24h) 60 mg PO DAILY [facility] Last Admin: 03/02/22 10:03 Dose: Not Given Lactulose (Lactulose 20 Gm/30 Ml Cup) 20 gm PO BID [facility] Last Admin: 03/02/22 09:27 Dose: Not Given Melatonin (Melatonin 5 Mg Tablet) 5 mg PO HS [facility] Last Admin: 03/01/22 20:53 Dose: 5 mg Metoprolol Tartrate (Metoprolol Tartrate 25 Mg Tab) 25 mg PO Q12H [facility] Last Admin: 03/02/22 10:03 Dose: Not Given Naloxone HCl (Naloxone 0.4 Mg/Ml 1 Ml Vial) 0.2 mg IV Q2M PRN PRN Reason: Opioid Reversal Nystatin (Nystatin 100,000 Unit/Ml Susp 500,000 Unit/5 Ml Cup) 500,000 unit PO QID [facility]; Protocol Last Admin: 03/02/22 13:57 Dose: Not Given Oseltamivir Phosphate (Oseltamivir 75 Mg Cap) 75 mg PO Q12HR [facility]; Protocol Stop: 03/04/22 21:01 Last Admin: 03/02/22 10:03 Dose: Not Given Pantoprazole Sodium (Pantoprazole 40 Mg/10 Ml Vial) 40 mg IV DAILY@0600 [facility] Last Admin: 03/02/22 14:19 Dose: 40 mg Pravastatin Sodium (Pravastatin Sodium 40 Mg Tab) 40 mg PO HS [facility] Last Admin: 03/01/22 20:53 Dose: 40 mg Tamsulosin HCl (Tamsulosin 0.4 Mg Cap.Er.24h) 0.4 mg PO BID [facility] Last Admin: 03/02/22 10:03 Dose: Not Given On examination: VITAL SIGNS: 99.5, 103, 18, 101/75, 95% room air GENERAL APPEARANCE: Laying in bed, tired, occasional coughing HEENT: Normal external appearance of nose and ear. Oral cavity white coated tongue. EYES: Pupils equal. Conjunctiva normal. NECK: JVD not raised. Mass not palpable. RESPIRATORY: Respiratory effort normal. Lungs clear to auscultation. CARDIOVASCULAR: First and second sounds normal. No edema. ABDOMEN: Soft. Liver and spleen not palpable. No tenderness. No mass palpable. MUSCULAR skeletal: Evidence of OA. Loss of muscle mass. PSYCHIATRY: Patient able to answer simple questions INVESTIGATIONS, reviewed in the clinical context: 03/02/2022: White count 8.5 hemoglobin 14.4 potassium 3.3 creatinine 0.78 Modified barium swallow: Deep penetration without evidence of aspiration worse with thin liquids 03/01/2022: White count 9.6 and globin 13.1 platelets 94 potassium 3.9 creatinine 0.66 albumin 2.9 Influenza type A: Detected CT chest: Bilateral lower lobe dependent critically of groundglass opacities, mild COPD changes. Descending code thoracic aorta aneurysm 4.37. Moderate cardiomegaly. Assessment and plan: -Chronic dysphagia with aspiration to thin liquids.: Worsening Showed aspiration on modified barium swallow. On nectar thick liquids. ; Patient now also choking on thick liquids. Made nothing by mouth. Family agreeable to NG tube and PEG tube. -BPH Flomax -PAD Aspirin, Pravachol -Oropharyngeal candidiasis Diflucan -GERD Prilosec -CAD with prior history of bypass Aspirin, Lopressor, Imdur -Hyperlipidemia Pravachol -Seizure disorder -AICD -Moderate to severe protein calorie malnutrition Nutritional supplement -01/26/2022 left femur fracture -IM nailing at [facility]. PT OT. Not weightbearing as tolerated -DO NOT RESUSCITATE Patient made nothing by mouth. NG tube attempted unsuccessfully. Not able to take medications. PEG tube placement this evening hopefully with Dr. Yanez. Prognosis guarded. Started IV fluids. Advance care planning: This was done at the bedside with the patient's and son. Many discussion was had about patient's overall condition. They understand prognosis guarded at this point. Initially agreed to NG tube. Later today, indicated to the nurse that agreeable to PEG tube feeding. Questions were answered. Prior to having his surgery for the hip patient is able to get about. His health nutritional status is declining in the last 1 month. Total time spent about 25 minutes
--- NOTE | 2022-03-02 16:48 | P.OP ---
Date of Procedure: 03/02/22 Preoperative Diagnosis: Malnutrition Postoperative Diagnosis: Micturition Procedure(s) Performed: EGD with PEG tube placement Anesthesia: MAC Surgeon: Sherif Yanez Pathology: none sent Condition: stable Disposition: PACU Description of Procedure: The patient received IV sedation. Next the gastroscope placed oropharynx passed in the esophagus and stomach. There is no evidence of any outlet obstruction. Stomach was insufflated with air. The light reflux seen the anterior abdominal wall. The abdomen was prepped and draped usual fashion. The skin was incised. And the needles placed and stomach under direct visualization. The needle was snared. And the wires placed through the needle and the wire was snared and brought the oropharynx. The PEG tube was placed over top the wire brought down to the stomach. The PEG tube was secured. At the 3 cm sada. The one-piece bolster was used. Patient tolerated procedure well.
[2022-03-02] MEDS: PIPERACILLIN-TAZOBACTAM 3.375 GM in SODIUM CHLORIDE 0.9% 100 ML IVPB SCH ×2 (17:52→23:16)
[2022-03-02] MEDS: SODIUM CHLORIDE 0.9% 1,000 ML IV SCH (17:52)
[2022-03-02] MEDS: METOPROLOL TARTRATE 5 MG/5 ML VIAL IVP SCH ×2 (17:53→23:16)
[2022-03-02] MEDS ORDERED: Potassium Replacement Protocol 1 EACH MISC MISCELLANE PRN (18:14)
[2022-03-02] MEDS: POTASSIUM CHLORIDE 10 MEQ in WATER FOR INJECTION 1 100ML.BAG IVPB SCH ×4 (19:42→22:38)
[2022-03-02] MEDS: PRAVASTATIN SODIUM 40 MG TAB PO SCH (20:00)
[2022-03-02] MEDS: MELATONIN 5 MG TABLET PO SCH (20:00)
[2022-03-02] MEDS: CALCIUM CARBONATE 500 MG CHEWABLE PO SCH (20:00)
[2022-03-03] MEDS: DORZOLAMIDE HCL 2% DROPS 10 ML BTL BOTH EYES SCH ×3 (02:05→17:26)
[2022-03-03] MEDS: PANTOPRAZOLE 40 MG/10 ML VIAL IV SCH (05:46)
[2022-03-03] MEDS: METOPROLOL TARTRATE 5 MG/5 ML VIAL IVP SCH ×3 (05:46→17:26)
[2022-03-03 07:45] LABS: Magnesium 2.1 mg/dL (1.6-2.3); Potassium 3.5 mmol/L (3.5-5.1)
[2022-03-03] MEDS: BUDESONIDE 1 MG/2 ML NEBU INHALATION SCH ×2 (07:53→20:28)
[2022-03-03] MEDS: IPRATROPIUM-ALBUTEROL 3 ML NEB INHALATION SCH ×4 (07:53→20:28)
[2022-03-03] MEDS: PIPERACILLIN-TAZOBACTAM 3.375 GM in SODIUM CHLORIDE 0.9% 100 ML IVPB SCH ×3 (08:54→23:14)
[2022-03-03] MEDS: ENOXAPARIN 40 MG/0.4 ML SYRINGE SQ SCH (08:54)
[2022-03-03] MEDS: SODIUM CHLORIDE 0.9% 1,000 ML IV SCH ×2 (08:55→15:52)
[2022-03-03 12:08] VITALS: BMI 17.8
[2022-03-03] MEDS: CYANOCOBALAMIN 500 MCG TAB PO SCH (12:16)
--- NOTE | 2022-03-03 12:54 | P.PN ---
Subjective Progress Note Date: 03/03/22 CHIEF COMPLAINT: Severe protein calorie malnutrition HISTORY OF PRESENT ILLNESS: Patient is status post PEG tube placement. Tube feedings should be started today. He denies any pain. Denies any nausea or vomiting. Afebrile. WBC 8.5 potassium 3.5 magnesium 2.1 PHYSICAL EXAM: VITAL SIGNS: Reviewed. GENERAL: Well-developed in no acute distress. HEENT: No sclera icterus. Extraocular movements grossly intact. Moist buccal mucosa. Head is atraumatic, normocephalic. ABDOMEN: Soft. Nondistended. Nontender. PEG tube site clean dry and intact NEUROLOGIC: Alert and oriented. Cranial nerves II through XII grossly intact. ASSESSMENT: 1. Dysphagia 2. Severe protein calorie malnutrition 3. 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 Signing provider agrees with the documented findings, assessment, and plan of care. Objective - Vital Signs Vital signs: Vital Signs Temp 98.1 F 03/03/22 08:49 Pulse 102 H 03/03/22 08:49 Resp 18 03/03/22 08:49 BP 129/72 03/03/22 08:49 Pulse Ox 97 03/03/22 08:49 FiO2 Intake & Output 03/02/22 03/03/22 03/03/22 18:59 06:59 18:59 Intake Total 110 Output Total 350 Balance -240 Weight 53.07 kg Intake: IV 10 Intake, IV Titration 100 Amount Sodium Chloride 0.9% 1, 100 000 ml @ 100 mls/hr IV . Q10H [facility] Rx#:[id number] Output: Urine 350 Other: Voiding Method Diaper Diaper Diaper External Catheter External Catheter External Catheter # Bowel Movements 1 - Labs CBC & Chem 7: 03/02/22 13:55 03/03/22 06:36 Labs: Abnormal Lab Results - Last 24 Hours (Table) 03/02/22 03/02/22 03/02/22 Range/Units 13:55 13:55 13:55 MCV 104.2 H (80.0-100.0) fL Lymphocytes # 4.9 H (1.0-4.8) k/uL Potassium 3.3 L (3.5-5.1) mmol/L BUN 28 H (9-20) mg/dL Glucose 123 H (74-99) mg/dL Total Bilirubin 1.5 H (0.2-1.3) mg/dL Alkaline Phosphatase 134 H (38-126) U/L C-Reactive Protein 6.1 H (<1.0) mg/dL Total Protein 5.5 L (6.3-8.2) g/dL Albumin 2.9 L (3.5-5.0) g/dL Procalcitonin 0.15 H (0.02-0.09) ng/mL Microbiology - Last 24 Hours (Table) 02/27/22 21:55 Blood Culture - Preliminary Blood No Growth after 72 hours 02/27/22 22:00 Blood Culture - Preliminary Blood No Growth after 72 hours 03/01/22 19:57 Gram Stain - Preliminary Sputum Sputum Culture - Preliminary
--- NOTE | 2022-03-03 13:01 | P.PN ---
Subjective Progress Note Date: 03/03/22 Principal diagnosis: Acute influenza and pneumonia Patient is 86 year old male with a past medical history significant for hypertension hyperlipidemia BPH congestive heart failure patient recently did have a fall with a left hip fracture status post operative repair currently [facility] has been sent to the ER for evaluation of increasing shortness of breath and cough this patient has been diagnosed with acute influenza. Patient is status post PEG tube placement on 03/02/2022 On today's evaluation that is 03/03/2022, the patient is afebrile today, the patient is currently breathing comfortably on room air. The patient denies hav ing any chest pain , the patient did have occasional dry cough no nausea no vomiting no abdominal pain or diarrhea Objective - Vital Signs Vital signs: Vital Signs Temp 98.1 F 03/03/22 08:49 Pulse 100 03/03/22 11:52 Resp 18 03/03/22 08:49 BP 129/72 03/03/22 08:49 Pulse Ox 97 03/03/22 08:49 FiO2 Intake & Output 03/02/22 03/03/22 03/03/22 18:59 06:59 18:59 Intake Total 110 Output Total 350 Balance -240 Weight 53.07 kg Intake: IV 10 Intake, IV Titration 100 Amount Sodium Chloride 0.9% 1, 100 000 ml @ 100 mls/hr IV . Q10H [facility] Rx#:[id number] Output: Urine 350 Other: Voiding Method Diaper Diaper Diaper External Catheter External Catheter External Catheter # Bowel Movements 1 - Exam GENERAL DESCRIPTION: An elderly male lying in bed in no distress RESPIRATORY SYSTEM: Unlabored breathing , decreased breath sounds at bases HEART: S1 S2 regular rate and rhythm , ABDOMEN: Soft , no tenderness EXTREMITIES: No edema feet - Labs CBC & Chem 7: 03/02/22 13:55 03/03/22 06:36 Labs: Abnormal Lab Results - Last 24 Hours (Table) 03/02/22 03/02/22 03/02/22 Range/Units 13:55 13:55 13:55 MCV 104.2 H (80.0-100.0) fL Lymphocytes # 4.9 H (1.0-4.8) k/uL Potassium 3.3 L (3.5-5.1) mmol/L BUN 28 H (9-20) mg/dL Glucose 123 H (74-99) mg/dL Total Bilirubin 1.5 H (0.2-1.3) mg/dL Alkaline Phosphatase 134 H (38-126) U/L C-Reactive Protein 6.1 H (<1.0) mg/dL Total Protein 5.5 L (6.3-8.2) g/dL Albumin 2.9 L (3.5-5.0) g/dL Procalcitonin 0.15 H (0.02-0.09) ng/mL Microbiology - Last 24 Hours (Table) 02/27/22 21:55 Blood Culture - Preliminary Blood No Growth after 72 hours 02/27/22 22:00 Blood Culture - Preliminary Blood No Growth after 72 hours 03/01/22 19:57 Gram Stain - Preliminary Sputum Sputum Culture - Preliminary Assessment and Plan (1) Influenza A Current Visit: No Status: Acute Code(s): J10.1 - FLU DUE TO OTH IDENT INFLUENZA VIRUS W OTH RESP MANIFEST SNOMED Code(s): 974273416 Plan: 1patient is in the hospital with increasing shortness of breath cough and weakness which is likely multifactorial in this patient who did tested positive for influenza A for which the patient is currently covered with Tamiflu and will be continued to finish a 5 day course of therapy 2-patient did have a new fever for the patient did have workup done, we will continue Zosyn while waiting for the cultures to finalize and monitor clinical course closely Time with Patient: Less than 30
[2022-03-03] MEDS: CHOLECALCIFEROL 25 MCG (1000 IU) TABLET PO SCH (13:27)
[2022-03-03] MEDS: ASPIRIN 81 MG PO SCH (13:28)
[2022-03-03] MEDS: OSELTAMIVIR 75 MG CAP PO SCH ×2 (13:28→20:22)
--- NOTE | 2022-03-03 13:49 | P.PN ---
Subjective Progress Note Date: 03/03/22 This is a very pleasant 86-year-old male patient with a known history of hypertension, hyperlipidemia, BPH,, congestive heart failure, AICD placement. In January 2022 the patient had sustained a fall at home and broke his left hip. He was seen at [facility] emergency room and subsequent ab lation count is [facility] for left hip surgery and repair. He was discharged from there on 01/31/2022 to [facility] on the [place]. While there he contracted influenza and had been eating progressively weak. They transferred him to the [facility] [place] and he was not receiving any physical therapy. He had been losing a significant amount of weight. He is brought into the emergency room yesterday for an evaluation. White count 7.7. Hemoglobin 12.6. Platelets 196. Sodium 132. Potassium 3.9. BUN 24. Creatinine 0.75. ProBNP 1960. TSH 1.9. Influenza A+ COVID-19 screen negative. RSV screen negative. Pro-calcitonin pending. He is seen today in consultation on the in the emergency department. He is currently sitting up in as a chair. Awake and alert. He appears dehydrated. He is weak and cachectic. He is maintaining O2 saturations in the 90s on room air. Chest x-ray reveals cardiomegaly with prominent perihilar interstitial lung markings consistent with congestive heart failure versus atypical viral pneumonia. Computed tomography scan of the chest revealed bilateral lower lobe dependent reticular groundglass opacities representing atelectasis versus atypical viral pneumonia. Mild COPD changes. Descending thoracic aortic aneurysm measuring 4.3 cm. There is marketed air cardiomegaly and moderate, coronary artery calcifications. He does have dyspnea with minimal exertion. He has currently a dry nonproductive cough. Previously with some yellow phlegm. No fever. No chills. No nausea, vomiting or diarrhea. He has been initiated on Tamiflu, DuoNeb inhalations, Pulmicort inhalations, IV Solu- Medrol. He is remaining on oral diuretics. Lovenox for DVT prophylaxis. Tylenol for pain control. The patient is seen today 03/01/2022 in follow-up on the regular medical floor. He is currently resting comfortably in bed. Awake and alert in no acute distress. Maintaining good O2 saturations in the 90s on room air. Area swallow revealed deep penetration without evidence of aspiration worse with thinner consistencies. Awaiting speech therapy report. Blood cultures reveal no growth. White count 9.6. Hemoglobin 13.1. Platelets 194. Sodium 134. Potassium 3.9. BUN 25. Creatinine 0.66. Glucose 128. Urinalysis clear. He is positive for influenza A. He remains on bronchodilators. Continued on Tamiflu. Remains on oral diuretics. He is incontinent with no accurate I&O. The patient is seen today 03/03/2022 in follow-up on the regular medical floor. He is sitting up in a chair at the bedside. Awake and alert in no acute distress. He is maintaining O2 saturations up to 100% on 2 L/m per nasal cannula. He is afebrile. Hemodynamically stable. He had a PEG tube insertion yesterday. To be started on tube feedings later today. He continues with a weak congested cough. Chest x-ray reveals mild cardiomegaly. No acute pulmonary process. Blood cultures reveal no growth. Sputum culture pending. Potassium 3.5. Magnesium 2.1. Pro-calcitonin 0.15. He is continued on DuoNeb inhalations, Pulmicort inhalations. Completing a course of Tamiflu. Remains on antibiotics in the form of Zosyn and fluconazole. Objective - Vital Signs Vital signs: Vital Signs Temp 98.3 F 03/03/22 12:28 Pulse 106 H 03/03/22 12:28 Resp 20 03/03/22 12:28 BP 116/64 03/03/22 12:28 Pulse Ox 100 03/03/22 12:28 FiO2 Intake & Output 03/02/22 03/03/22 03/03/22 18:59 06:59 18:59 Intake Total 110 Output Total 350 Balance -240 Weight 53.07 kg 53.07 kg Intake: IV 10 Intake, IV Titration 100 Amount Sodium Chloride 0.9% 1, 100 000 ml @ 100 mls/hr IV . Q10H [facility] Rx#:[id number] Output: Urine 350 Other: Voiding Method Diaper Diaper Diaper External Catheter External Catheter External Catheter # Bowel Movements 1 - Exam GENERAL EXAM: Alert, frail, pleasant 86-year-old male, resting comfortably in bed, on room air, fairly comfortable in no apparent distress. HEAD: Normocephalic. EYES: Normal reaction of pupils, equal size. NOSE: Clear with pink turbinates. THROAT: No erythema or exudates. NECK: No masses, no JVD. CHEST: No chest wall deformity. LUNGS: Equal air entry with faint crackles in the posterior bases. CVS: S1 and S2 normal with no audible murmur, regular rhythm. ABDOMEN: PEG tube exit site is clean and dry. No hepatosplenomegaly, normal bowel sounds, no guarding or rigidity. SPINE: No scoliosis or deformity SKIN: No rashes CENTRAL NERVOUS SYSTEM: No focal deficits, tone is normal in all 4 extremities. EXTREMITIES: There is no peripheral edema. No clubbing, no cyanosis. Peripheral pulses are intact. - Labs CBC & Chem 7: 03/02/22 13:55 03/03/22 06:36 Labs: Abnormal Lab Results - Last 24 Hours (Table) 03/02/22 03/02/22 03/02/22 Range/Units 13:55 13:55 13:55 MCV 104.2 H (80.0-100.0) fL Lymphocytes # 4.9 H (1.0-4.8) k/uL Potassium 3.3 L (3.5-5.1) mmol/L BUN 28 H (9-20) mg/dL Glucose 123 H (74-99) mg/dL Total Bilirubin 1.5 H (0.2-1.3) mg/dL Alkaline Phosphatase 134 H (38-126) U/L C-Reactive Protein 6.1 H (<1.0) mg/dL Total Protein 5.5 L (6.3-8.2) g/dL Albumin 2.9 L (3.5-5.0) g/dL Procalcitonin 0.15 H (0.02-0.09) ng/mL Microbiology - Last 24 Hours (Table) 02/27/22 21:55 Blood Culture - Preliminary Blood No Growth after 72 hours 02/27/22 22:00 Blood Culture - Preliminary Blood No Growth after 72 hours 03/01/22 19:57 Gram Stain - Preliminary Sputum Sputum Culture - Preliminary Assessment and Plan Assessment: Generalized weakness, failure to thrive secondary to influenza A infection. Treated with Tamiflu. Modified barium swallow results field evidence of aspiration. He did undergo PEG tube placement on 03/02/2022. Dyspnea secondary to some evidence of fluid volume overload. Remains on oral diuretics. No evidence of pneumonia. Pro calcitonin 0.15. Chest x-ray shows cardiomegaly. Sputum culture pending. Currently on Zosyn. Recent fall with left [place] fracture [place] [facility] [place] Sub[place] rehabilitation at [facility] since 01/31/2022 Tested positive for influenza approximately 2 weeks ago Hyperlipidemia Hypertension Benign prosthetic hypertrophy History of seizures had been on Keppra in the outpatient setting, exact diagnosis unclear History of permanent pacemaker implantation Plan: The patient was seen and evaluated Chest x-ray, medications and labs reviewed To be initiated on tube feedings via PEG tube Continue bronchodilators, Tamiflu Continue Zosyn and fluconazole per ID service Add a flutter valve, incentive spirometer Titrate the FiO2 as tolerated Increase his activity as tolerated We will continue to follow I have personally seen and examined the patient, performed the documentation and the assessment and plan as written. Number of minutes spent on the visit: 10.
[2022-03-03] MEDS: NYSTATIN 100,000 UNIT/ML SUSP 500,000 UNIT/5 ML CUP PO SCH ×4 (14:11→20:19)
[2022-03-03] MEDS: LACTULOSE 20 GM/30 ML CUP PO SCH ×2 (14:11→20:22)
[2022-03-03] MEDS: ISOSORBIDE MONONITRATE ER 60 MG TAB.ER.24H PO SCH (14:11)
[2022-03-03] MEDS: TAMSULOSIN 0.4 MG CAP.ER.24H PO SCH ×2 (14:11→20:19)
[2022-03-03] MEDS: FLUCONAZOLE IN NACL,ISO-OSM 100 MG in SALINE 1 50ML.BAG IVPB SCH (15:56)
--- NOTE | 2022-03-03 16:17 | P.PN ---
Progress Note - Text Progress Note Date: 03/03/22 Hospital course: I assumed care of the patient today. Patient follows with Dr. Morris Thibodeaux. 03/01/2022: Patient was sent to the [facility] for weakness. Patient had been at [facility] for the last 1 month. Chronic stable medical conditions included EPH, PAD, GERD, hypertension, hyperlipidemia, dysarthria, CAD with bypass, seizures, anemia, AICD,. Patient is sent joints [facility] from January 26 through January 31 with left femur fracture followed by IM nailing by . Patient's weightbearing as tolerated. Patient was seen by speech therapy. Has been asked aspirating with thin liquids. Discussed with the therapist. Put on nectar thick liquids, supervised. No straws. Patient records from [facility] reviewed. Patient sitting up in a chair. This feeling weak and tired. Patient has no respiratory symptoms. He tested positive for influenza A. On Tamiflu. 03/02/2022: Patient choking even with liquids. Speech therapy communicated that patient should be made nothing by mouth. Patient also had a short run of V. tach off 5 beats. Unable to take his medications. Had a lengthy discussion with patient's and son at the bedside. Agreeable to NG tube.. Nurse called me later unable to place NG tube. Spoke to Dr. Renee from general surgery. Should be able to place a PEG tube this evening. Family agreeable to the same. Patient tired. Sometimes bouts of coughing. Family informed nurse that patient was taken off Keppra prior to going to [facility] and she has not had been continued. Hence and is being discontinued. Communicated to patient. 03/03/2022: Patient received a PEG tube yesterday evening. Medications and be started through that. In a recliner. Congested cough. Nothing by mouth. Patient's and daughter the bedside. Discussed. Dietitian consulted for tube feeding. Chest x-ray reviewed possible scanty infiltrate Active Medications Acetaminophen (Acetaminophen Tab 325 Mg Tab) 650 mg PO Q4H PRN PRN Reason: General Discomfort Last Admin: 03/01/22 19:36 Dose: 650 mg Albuterol/Ipratropium (Ipratropium-Albuterol 3 Ml Neb) 3 ml INHALATION RT-QID RICHELLE Last Admin: 03/03/22 16:09 Dose: 3 ml Aspirin (Aspirin 81 Mg) 81 mg PO DAILY [facility] Last Admin: 03/03/22 13:28 Dose: 81 mg Budesonide (Budesonide 1 Mg/2 Ml Nebu) 1 mg INHALATION RT-BID [facility] Last Admin: 03/03/22 07:53 Dose: 1 mg Calcium Carbonate/Glycine (Calcium Carbonate 500 Mg Chewable) 1,000 mg PO HS [facility] Last Admin: 03/02/22 20:00 Dose: Not Given Cholecalciferol (Cholecalciferol 25 Mcg (1000 Iu) Tablet) 50 mcg PO DAILY [facility] Last Admin: 03/03/22 13:27 Dose: 50 mcg Cyanocobalamin (Cyanocobalamin 500 Mcg Tab) 500 mcg PO W/BRKFST [facility] Last Admin: 03/03/22 12:16 Dose: Not Given Dorzolamide HCl (Dorzolamide Hcl 2% Drops 10 Ml Btl) 1 drops BOTH EYES Q8H [facility] Last Admin: 03/03/22 08:55 Dose: 1 drops Enoxaparin Sodium (Enoxaparin 40 Mg/0.4 Ml Syringe) 40 mg SQ DAILY [facility] Last Admin: 03/03/22 08:54 Dose: 40 mg Piperacillin Sod/Tazobactam (Sod 3.375 gm/ Sodium Chloride) 100 mls @ 25 mls/hr IVPB Q8HR [facility]; Protocol Last Admin: 03/03/22 15:53 Dose: 25 mls/hr Fluconazole/Sodium Chloride (100 mg/ IV Solution) 50 mls @ 50 mls/hr IVPB Q24H [facility] Last Admin: 03/03/22 15:56 Dose: 50 mls/hr Sodium Chloride (Saline 0.9%) 1,000 mls @ 100 mls/hr IV .Q10H [facility] Last Admin: 03/03/22 15:52 Dose: 100 mls/hr Isosorbide Mononitrate (Isosorbide Mononitrate Er 60 Mg Tab.Er.24h) 60 mg PO DAILY [facility] Last Admin: 03/03/22 14:11 Dose: Not Given Lactulose (Lactulose 20 Gm/30 Ml Cup) 20 gm PO BID [facility] Last Admin: 03/03/22 14:11 Dose: Not Given Melatonin (Melatonin 5 Mg Tablet) 5 mg PO HS [facility] Last Admin: 03/02/22 20:00 Dose: Not Given Metoprolol Tartrate (Metoprolol Tartrate 25 Mg Tab) 25 mg PO Q12H [facility] Last Admin: 03/02/22 10:03 Dose: Not Given Metoprolol Tartrate (Metoprolol Tartrate 5 Mg/5 Ml Vial) 5 mg IVP Q6HR [facility] Last Admin: 03/03/22 13:27 Dose: 5 mg Miscellaneous Information ( Communication To Pharmacy 1 Each [facility]) 1 each PO ONCE PRN PRN Reason: See Comments Miscellaneous Information (Potassium Replacement Protocol 1 Each [facility]) 1 each MISCELLANE DAILY PRN; Protocol PRN Reason: Per Protocol Naloxone HCl (Naloxone 0.4 Mg/Ml 1 Ml Vial) 0.2 mg IV Q2M PRN PRN Reason: Opioid Reversal Nystatin (Nystatin 100,000 Unit/Ml Susp 500,000 Unit/5 Ml Cup) 500,000 unit PO QID [facility]; Protocol Last Admin: 03/03/22 15:51 Dose: Not Given Oseltamivir Phosphate (Oseltamivir 75 Mg Cap) 75 mg PO Q12HR [facility]; Protocol Stop: 03/04/22 21:01 Last Admin: 03/03/22 13:28 Dose: 75 mg Pantoprazole Sodium (Pantoprazole 40 Mg/10 Ml Vial) 40 mg IV DAILY@0600 [facility] Last Admin: 03/03/22 05:46 Dose: 40 mg Pravastatin Sodium (Pravastatin Sodium 40 Mg Tab) 40 mg PO HS [facility] Last Admin: 03/02/22 20:00 Dose: Not Given Tamsulosin HCl (Tamsulosin 0.4 Mg Cap.Er.24h) 0.4 mg PO BID [facility] Last Admin: 03/03/22 14:11 Dose: Not Given On examination: VITAL SIGNS: 98.3, 106, 20, 106/64, 100% on 2 L GENERAL APPEARANCE: Reclining in chair, congested cough HEENT: Normal external appearance of nose and ear. Oral cavity white coated tongue. EYES: Pupils equal. Conjunctiva normal. NECK: JVD not raised. Mass not palpable. RESPIRATORY: Respiratory effort increased. Lungs coarse crackles. CARDIOVASCULAR: First and second sounds normal. No edema. ABDOMEN: Soft. Liver and spleen not palpable. No tenderness. No mass palpable. MUSCULAR skeletal: Evidence of OA. Loss of muscle mass. PSYCHIATRY: Patient able to answer simple questions INVESTIGATIONS, reviewed in the clinical context: 03/02/2022: White count 8.5 hemoglobin 14.4 potassium 3.3 creatinine 0.78. Procalcitonin 0.15 Modified barium swallow: Deep penetration without evidence of aspiration worse with thin liquids 03/01/2022: White count 9.6 and globin 13.1 platelets 94 potassium 3.9 creatinine 0.66 albumin 2.9 Influenza type A: Detected CT chest: Bilateral lower lobe dependent critically of groundglass opacities, mild COPD changes. Descending code thoracic aorta aneurysm 4.37. Moderate cardiomegaly. Assessment and plan: -Chronic dysphagia with aspiration to thin liquids.: Not improving Showed aspiration on modified barium swallow. On nectar thick liquids. ; Patient now also choking on thick liquids. Made nothing by mouth. -Possible aspiration pneumonitis: New diagnosis IV Zosyn -Influenza a Tamiflu -PEG tube placement with Dr. Yanez on 03/03/2022 Tube feeding per dietitian -BPH Flomax -PAD Aspirin, Pravachol -Oropharyngeal candidiasis Diflucan -GERD Prilosec -CAD with prior history of bypass Aspirin, Lopressor, Imdur -Hyperlipidemia Pravachol -Seizure disorder -AICD -Moderate to severe protein calorie malnutrition Nutritional supplement -01/26/2022 left femur fracture -IM nailing at [facility]. PT OT. weightbearing as tolerated -DO NOT RESUSCITATE
[2022-03-03] MEDS: MELATONIN 5 MG TABLET PO SCH (20:22)
[2022-03-03] MEDS: CALCIUM CARBONATE 500 MG CHEWABLE PO SCH (20:22)
[2022-03-03] MEDS: PRAVASTATIN SODIUM 40 MG TAB PO SCH (20:22)
[2022-03-03] MEDS: METOPROLOL TARTRATE 25 MG TAB PO SCH (20:26)
[2022-03-04] MEDS: DORZOLAMIDE HCL 2% DROPS 10 ML BTL BOTH EYES SCH ×4 (02:05→23:01)
--- NOTE | 2022-03-04 05:51 | P.CRDCN ---
History of Present Illness Consult date: 03/04/22 Chief complaint: Shortness of breath History of present illness: The patient is an 86-year-old gentleman with a past medical history significant for coronary artery disease by history as well as hypertension and dyslipidemia and history of AICD and also history of chronic obstructive pulmonary disease. The patient initially was admitted to the floor for increasing shortness of breath associated with cough and sputum production and he was diagnosed with influenza A infection. The patient initially was treated medically but for some reason because he was unable to take his medications including his beta miri medication where on hold. We consulted to see the patient because there was a concern about atrial fibrillation. We did review the EKG and the EKG seems to be consistent with multifocal atrial tachycardia more than atrial fibrillation. The patient is a poor historian and he is somewhat confused. No indication of any feeling of heart racing or fluttering and no symptoms of chest pain or chest discomfort but he continues to have shortness of breath. No dizziness or lightheadedness and no presyncope or syncope. The patient never seen by our service before. 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 Currently his heart rate has been under good control with multifocal atrial tachycardia. Beta miri was restarted again. We are going to continue the current medical regimen and obtain an echocardiogram was Doppler. Past Medical History Past Medical History: Heart Failure, COPD, Myocardial Infarction ([place]), Pneumonia Additional Past Medical History / Comment(s): [place] 1985, arthritis Last Myocardial Infarction Date:: 1985 History of Any Multi-Drug Resistant Organisms: None Reported Past Surgical History: Back Surgery, Orthopedic Surgery, Pacemaker Additional Past Surgical History / Comment(s): left hip surgery, Pacemaker/Defib implantation Past Anesthesia/Blood Transfusion Reactions: No Reported Reaction Type of Cardiac Device: AICD Device Placement Date:: 2019 Smoking Status: Never smoker Medications and Allergies Home Medications Medication Instructions Recorded Confirmed Type Acetaminophen Tab [Tylenol] 650 mg PO Q4H PRN 02/27/22 02/27/22 History Aspirin EC [Ecotrin Low Dose] 81 mg PO DAILY 02/27/22 02/27/22 History Calcium Carbonate [Calcium] 1,200 mg PO HS 02/27/22 02/27/22 History Calcium Carbonate [Tums] 500 mg PO Q12H 02/27/22 02/27/22 History Cholecalciferol [Vitamin D3 (25 50 mcg PO DAILY 02/27/22 02/27/22 History Mcg = 1000 Iu)] Cyanocobalamin [Vitamin B-12] 500 mcg PO DAILY 02/27/22 02/27/22 History Dorzolamide 2% [Trusopt 2%] 1 drop BOTH EYES Q8H 02/27/22 02/27/22 History Furosemide [Lasix] 40 mg PO DAILY@0600 02/27/22 02/27/22 History Isosorbide Mononitrate ER [Imdur] 60 mg PO DAILY 02/27/22 02/27/22 History Lactose-Reduced Food [Ensure Plus] 237 ml PO TID@0900,1300,2100 02/27/22 02/27/22 History Lactulose 20 gm PO BID 02/27/22 02/27/22 History Metoprolol Tartrate [Lopressor] 25 mg PO Q12H 02/27/22 02/27/22 History Omeprazole Magnesium [PriLOSEC OTC] 20 mg PO DAILY@0600 02/27/22 02/27/22 History Pravastatin Sodium [Pravachol] 40 mg PO HS 02/27/22 02/27/22 History Tamsulosin HCl [Flomax] 0.4 mg PO BID 02/27/22 02/27/22 History lisinopriL 2.5 mg PO DAILY 03/02/22 03/02/22 History Allergies Allergy/AdvReac Type Severity Reaction Status Date / Time No Known Allergies Allergy Verified 02/27/22 14:45 Physical Exam Vitals: Vital Signs Temp Pulse Pulse Pulse Resp BP BP 03/04/22 03:17 98.3 F 95 20 117/73 03/03/22 23:44 97.9 F 88 22 123/79 03/03/22 20:42 90 03/03/22 20:28 92 03/03/22 19:58 103 H 26 H 03/03/22 19:57 98.7 F 103 H 26 H 117/76 03/03/22 18:00 80 125/75 03/03/22 17:25 94 122/78 03/03/22 16:41 97.9 F 93 14 109/74 03/03/22 16:20 94 03/03/22 16:09 90 03/03/22 15:45 81 115/58 01/20/23 15:35 80 136/74 03/03/22 15:30 91 113/84 03/03/22 13:45 87 128/89 03/03/22 13:40 94 123/91 03/03/22 13:35 93 127/78 03/03/22 13:30 110 H 146/90 03/03/22 12:28 98.3 F 106 H 20 116/64 03/03/22 12:01 92 03/03/22 11:52 100 03/03/22 08:49 98.1 F 102 H 18 129/72 03/03/22 08:07 86 03/03/22 07:53 84 Pulse Ox 03/04/22 03:17 97 03/03/22 23:44 99 03/03/22 20:42 03/03/22 20:28 03/03/22 19:58 03/03/22 19:57 100 03/03/22 18:00 99 03/03/22 17:25 97 03/03/22 16:41 97 03/03/22 16:20 03/03/22 16:09 03/03/22 15:45 98 03/03/22 15:35 97 03/03/22 15:30 96 03/03/22 13:45 03/03/22 13:40 03/03/22 13:35 03/03/22 13:30 03/03/22 12:28 100 03/03/22 12:01 03/03/22 11:52 03/03/22 08:49 97 03/03/22 08:07 03/03/22 07:53 92 L Intake and Output 03/03/22 03/03/22 03/04/22 14:59 22:59 06:59 Other: Voiding Method Diaper Diaper Diaper External Catheter # Voids 1 # Bowel Movements 1 Weight 53.07 kg - Constitutional General appearance: no acute distress - Respiratory Respiratory: bilateral: diminished - Cardiovascular Rhythm: regular Abnormal Heart Sounds: systolic murmur Results 03/02/22 13:55 03/03/22 06:36 Comprehensive Metabolic Panel 03/03/22 Range/Units 06:36 Potassium 3.5 (3.5-5.1) mmol/L Current Medications Generic Name Dose Route Start Last Admin Trade Name Sherry PRN Reason Stop Dose Admin Acetaminophen 650 mg 02/28/22 00:14 03/01/22 19:36 Acetaminophen Tab 325 Mg Tab PO 650 mg Q4H PRN Administration General Discomfort Albuterol/Ipratropium 3 ml 02/28/22 08:00 03/03/22 20:28 Ipratropium-Albuterol 3 Ml Neb INHALATION 3 ml RT-QID RICHELLE Administration Aspirin 81 mg 02/28/22 09:00 03/03/22 13:28 Aspirin 81 Mg PO 81 mg DAILY RICHELLE Administration Budesonide 1 mg 02/28/22 20:00 03/03/22 20:28 Budesonide 1 Mg/2 Ml Nebu INHALATION 1 mg RT-BID RICHELLE Administration Calcium Carbonate/Glycine 1,000 mg 02/28/22 21:00 03/03/22 20:22 Calcium Carbonate 500 Mg Chewable PO 1,000 mg HS RICHELLE Administration Cholecalciferol 50 mcg 02/28/22 09:00 03/03/22 13:27 Cholecalciferol 25 Mcg (1000 Iu) Tablet PO 50 mcg DAILY RICHELLE Administration Cyanocobalamin 500 mcg 02/28/22 07:30 03/03/22 12:16 Cyanocobalamin 500 Mcg Tab PO Not Given W/BRKFST RICHELLE Dorzolamide HCl 1 drops 02/28/22 09:00 03/04/22 02:05 Dorzolamide Hcl 2% Drops 10 Ml Btl BOTH EYES 1 drops Q8H RICHELLE Administration Enoxaparin Sodium 40 mg 02/28/22 09:00 03/03/22 08:54 Enoxaparin 40 Mg/0.4 Ml Syringe SQ 40 mg DAILY RICHELLE Administration Piperacillin Sod/Tazobactam 100 mls @ 25 mls/hr 03/02/22 16:00 03/03/22 23:14 Sod 3.375 gm/ Sodium Chloride IVPB 25 mls/hr Q8HR RICHELLE Administration Protocol Fluconazole/Sodium Chloride 50 mls @ 50 mls/hr 03/02/22 16:00 03/03/22 15:56 100 mg/ IV Solution IVPB 50 mls/hr Q24H RICHELLE Administration Sodium Chloride 1,000 mls @ 100 mls/hr 03/02/22 16:30 03/03/22 15:52 Saline 0.9% IV 100 mls/hr .Q10H RICHELLE Administration Isosorbide Mononitrate 60 mg 02/28/22 09:00 03/03/22 14:11 Isosorbide Mononitrate Er 60 Mg Tab.Er.24h PO Not Given DAILY RICHELLE Lactulose 20 gm 02/28/22 09:00 03/03/22 20:22 Lactulose 20 Gm/30 Ml Cup PO 20 gm BID RICHELLE Administration Melatonin 5 mg 02/28/22 21:00 03/03/22 20:22 Melatonin 5 Mg Tablet PO 5 mg HS RICHELLE Administration Metoprolol Tartrate 25 mg 02/28/22 09:00 03/03/22 20:26 Metoprolol Tartrate 25 Mg Tab PO 25 mg Q12H RICHELLE Administration Miscellaneous Information 1 each 03/02/22 16:19 Md Communication To Pharmacy 1 Each Misc PO ONCE PRN See Comments Miscellaneous Information 1 each 03/02/22 18:14 Potassium Replacement Protocol 1 Each Misc MISCELLANE DAILY PRN Per Protocol Protocol Naloxone HCl 0.2 mg 02/27/22 16:09 Naloxone 0.4 Mg/Ml 1 Ml Vial IV Q2M PRN Opioid Reversal Nystatin 500,000 unit 02/28/22 22:00 03/03/22 20:19 Nystatin 100,000 Unit/Ml Susp 500,000 Unit/5 Ml Cup PO Not Given QID RICHELLE Protocol Oseltamivir Phosphate 75 mg 02/28/22 09:00 03/03/22 20:22 Oseltamivir 75 Mg Cap PO 03/04/22 21:01 75 mg Q12HR RICHELLE Administration Protocol Pantoprazole Sodium 40 mg 03/02/22 14:00 03/03/22 05:46 Pantoprazole 40 Mg/10 Ml Vial IV 40 mg DAILY@0600 RICHELLE Administration Pravastatin Sodium 40 mg 02/28/22 21:00 03/03/22 20:22 Pravastatin Sodium 40 Mg Tab PO 40 mg HS RICHELLE Administration Tamsulosin HCl 0.4 mg 02/28/22 09:00 03/03/22 20:19 Tamsulosin 0.4 Mg Cap.Er.24h PO Not Given BID RICHELLE Intake and Output 03/03/22 03/03/22 03/04/22 14:59 22:59 06:59 Other: Voiding Method Diaper Diaper Diaper External Catheter # Voids 1 # Bowel Movements 1 Weight 53.07 kg Patient Weight 03/04/22 06:59 Weight 53.07 kg 03/02/22 13:55 03/03/22 06:36 Assessment and Plan Assessment: Assessment Influenza A and infection Cardiac arrhythmia into multifocal atrial tachycardia Coronary artery disease by history History of AICD COPD Multiple comorbid conditions Plan Continue the current medical regimen Heart rate and pressure are controlled on the current medical regimen Obtain an echocardiogram was Doppler Follow-up with the patient
[2022-03-04] MEDS: SODIUM CHLORIDE 0.9% 1,000 ML IV SCH ×3 (05:59→17:48)
[2022-03-04] MEDS: PANTOPRAZOLE 40 MG/10 ML VIAL IV SCH (06:02)
[2022-03-04] MEDS: CYANOCOBALAMIN 500 MCG TAB PO SCH (06:02)
[2022-03-04] MEDS: IPRATROPIUM-ALBUTEROL 3 ML NEB INHALATION SCH ×4 (08:35→20:42)
[2022-03-04] MEDS: BUDESONIDE 1 MG/2 ML NEBU INHALATION SCH ×2 (08:35→20:42)
[2022-03-04] MEDS: METOPROLOL TARTRATE 25 MG TAB PO SCH ×2 (09:33→20:17)
[2022-03-04] MEDS: OSELTAMIVIR 75 MG CAP PO SCH ×2 (09:33→20:17)
[2022-03-04] MEDS: ASPIRIN 81 MG PO SCH (09:33)
[2022-03-04] MEDS: ENOXAPARIN 40 MG/0.4 ML SYRINGE SQ SCH (09:33)
[2022-03-04] MEDS: TAMSULOSIN 0.4 MG CAP.ER.24H PO SCH ×2 (09:33→21:39)
[2022-03-04] MEDS: PIPERACILLIN-TAZOBACTAM 3.375 GM in SODIUM CHLORIDE 0.9% 100 ML IVPB SCH ×3 (09:33→23:01)
[2022-03-04] MEDS: CHOLECALCIFEROL 25 MCG (1000 IU) TABLET PO SCH (09:33)
[2022-03-04] MEDS: NYSTATIN 100,000 UNIT/ML SUSP 500,000 UNIT/5 ML CUP PO SCH ×4 (09:34→21:39)
[2022-03-04] MEDS: LACTULOSE 20 GM/30 ML CUP PO SCH ×2 (09:34→21:39)
[2022-03-04] MEDS: ISOSORBIDE MONONITRATE ER 60 MG TAB.ER.24H PO SCH (09:35)
--- NOTE | 2022-03-04 11:49 | P.PN ---
Subjective Progress Note Date: 03/04/22 Principal diagnosis: Acute influenza and pneumonia Patient is 86 year old male with a past medical history significant for hypertension hyperlipidemia BPH congestive heart failure patient recently did have a fall with a left hip fracture status post operative repair currently undergoing rehab at the local shelter has been sent to the ER for evaluation of increasing shortness of breath and cough this patient has been diagnosed with acute influenza. Patient is status post PEG tube placement on 03/02/2022 On today's evaluation that is 03/04/2022, the patient remains to be afebrile =, the patient is breathing comfortably on 2 L nasal cannula oxygen. The patient denies having any chest pain , the patient did have occasional dry cough no nausea no vomiting no abdominal pain or diarrhea Objective - Vital Signs Vital signs: Vital Signs Temp 98.3 F 03/04/22 03:17 Pulse 94 03/04/22 08:46 Resp 20 03/04/22 03:17 BP 133/81 03/04/22 08:00 Pulse Ox 100 03/04/22 08:00 FiO2 Intake & Output 03/03/22 03/04/22 03/04/22 18:59 06:59 18:59 Output Total 100 Balance -100 Weight 53.07 kg Output: Urine 100 Other: Voiding Method Diaper Diaper Diaper External Catheter # Voids 1 # Bowel Movements 1 - Exam GENERAL DESCRIPTION: An elderly male lying in bed in no distress RESPIRATORY SYSTEM: Unlabored breathing , decreased breath sounds at bases HEART: S1 S2 regular rate and rhythm , ABDOMEN: Soft , no tenderness EXTREMITIES: No edema feet - Labs CBC & Chem 7: 03/02/22 13:55 03/03/22 06:36 Labs: Microbiology - Last 24 Hours (Table) 02/27/22 21:55 Blood Culture - Preliminary Blood No Growth after 96 hours 02/27/22 22:00 Blood Culture - Preliminary Blood No Growth after 96 hours 03/02/22 13:55 Blood Culture - Preliminary Blood No Growth after 24 hours Assessment and Plan (1) Influenza A Current Visit: No Status: Acute Code(s): J10.1 - FLU DUE TO OTH IDENT INFLUENZA VIRUS W OTH RESP MANIFEST SNOMED Code(s): 685463034 Plan: 1patient is in the hospital with increasing shortness of breath cough and weakness which is likely multifactorial in this patient who did tested positive for influenza A for which the patient is currently covered with Tamiflu and will be continued to finish a 5 day course of therapy as of 03/04/2022 2-patient did have a new feveran consult for possible aspiration pneumonitis patient fever responded to Zosyn should be continued and monitor his clinical course closely Time with Patient: Less than 30
--- NOTE | 2022-03-04 12:01 | P.PN ---
Subjective Progress Note Date: 03/04/22 This is a very pleasant 86-year-old male patient with a known history of hypertension, hyperlipidemia, BPH,, congestive heart failure, AICD placement. In January 2022 the patient had sustained a fall at home and broke his left hip. He was seen at [facility] emergency room and subsequent ab lation count is [facility] for left hip surgery and repair. He was discharged from there on 01/31/2022 to [facility] on the [place]. While there he contracted influenza and had been eating progressively weak. They transferred him to the sick [place] and he was not receiving any physical therapy. He had been losing a significant amount of weight. He is brought into the emergency room yesterday for an evaluation. White count 7.7. Hemoglobin 12.6. Platelets 196. Sodium 132. Potassium 3.9. BUN 24. Creatinine 0.75. ProBNP 1960. TSH 1.9. Influenza A+ COVID-19 screen negative. RSV screen negative. Pro-calcitonin pending. He is seen today in consultation on the in the emergency department. He is currently sitting up in as a chair. Awake and alert. He appears dehydrated. He is weak and cachectic. He is maintaining O2 saturations in the 90s on room air. Chest x-ray reveals cardiomegaly with prominent perihilar interstitial lung markings consistent with congestive heart failure versus atypical viral pneumonia. Computed tomography scan of the chest revealed bilateral lower lobe dependent reticular groundglass opacities representing atelectasis versus atypical viral pneumonia. Mild COPD changes. Descending thoracic aortic aneurysm measuring 4.3 cm. There is marketed air cardiomegaly and moderate, coronary artery calcifications. He does have dyspnea with minimal exertion. He has currently a dry nonproductive cough. Previously with some yellow phlegm. No fever. No chills. No nausea, vomiting or diarrhea. He has been initiated on Tamiflu, DuoNeb inhalations, Pulmicort inhalations, IV Solu- Medrol. He is remaining on oral diuretics. Lovenox for DVT prophylaxis. Tylenol for pain control. The patient is seen today 03/01/2022 in follow-up on the regular medical floor. He is currently resting comfortably in bed. Awake and alert in no acute distress. Maintaining good O2 saturations in the 90s on room air. Area swallow revealed deep penetration without evidence of aspiration worse with thinner consistencies. Awaiting speech therapy report. Blood cultures reveal no growth. White count 9.6. Hemoglobin 13.1. Platelets 194. Sodium 134. Potassium 3.9. BUN 25. Creatinine 0.66. Glucose 128. Urinalysis clear. He is positive for influenza A. He remains on bronchodilators. Continued on Tamiflu. Remains on oral diuretics. He is incontinent with no accurate I&O. The patient is seen today 03/03/2022 in follow-up on the regular medical floor. He is sitting up in a chair at the bedside. Awake and alert in no acute distress. He is maintaining O2 saturations up to 100% on 2 L/m per nasal cannula. He is afebrile. Hemodynamically stable. He had a PEG tube insertion yesterday. To be started on tube feedings later today. He continues with a weak congested cough. Chest x-ray reveals mild cardiomegaly. No acute pulmonary process. Blood cultures reveal no growth. Sputum culture pending. Potassium 3.5. Magnesium 2.1. Pro-calcitonin 0.15. He is continued on DuoNeb inhalations, Pulmicort inhalations. Completing a course of Tamiflu. Remains on antibiotics in the form of Zosyn and fluconazole. The patient is seen today 03/04/2022 in follow-up on the regular medical floor. He is resting comfortably in bed. Awake and alert in no acute distress. He continues with a loose cough. He was educated regarding the use of the incentive spirometer and a flutter valve. Sputum cultures pending. Blood cultures revealed no growth. He remains on DuoNeb inhalations, Pulmicort inhalations, antibiotics in the form of Zosyn. Completing a course of Tamiflu. He is also on fluconazole. Lovenox for DVT prophylaxis. He is now being nourished with Jevity 1.5 with a goal of 63 ML's per hour +175 ML's of water flushes every 4 hours. Objective - Vital Signs Vital signs: Vital Signs Temp 98.3 F 03/04/22 03:17 Pulse 92 03/04/22 11:48 Resp 20 03/04/22 03:17 BP 133/81 03/04/22 08:00 Pulse Ox 100 03/04/22 08:00 FiO2 Intake & Output 03/03/22 03/04/22 03/04/22 18:59 06:59 18:59 Output Total 100 Balance -100 Weight 53.07 kg Output: Urine 100 Other: Voiding Method Diaper Diaper Diaper External Catheter # Voids 1 # Bowel Movements 1 - Exam GENERAL EXAM: Alert, cachectic, weak 86-year-old male, resting comfortably in bed, on room air, fairly comfortable in no apparent distress. HEAD: Normocephalic. EYES: Normal reaction of pupils, equal size. NOSE: Clear with pink turbinates. THROAT: No erythema or exudates. NECK: No masses, no JVD. CHEST: No chest wall deformity. LUNGS: Equal air entry with faint crackles in the posterior bases. CVS: S1 and S2 normal with no audible murmur, regular rhythm. ABDOMEN: PEG tube exit site is clean and dry. No hepatosplenomegaly, normal bowel sounds, no guarding or rigidity. SPINE: No scoliosis or deformity SKIN: No rashes CENTRAL NERVOUS SYSTEM: No focal deficits, tone is normal in all 4 extremities. EXTREMITIES: There is no peripheral edema. No clubbing, no cyanosis. Peripheral pulses are intact. - Labs CBC & Chem 7: 03/02/22 13:55 03/03/22 06:36 Labs: Microbiology - Last 24 Hours (Table) 02/27/22 21:55 Blood Culture - Preliminary Blood No Growth after 96 hours 02/27/22 22:00 Blood Culture - Preliminary Blood No Growth after 96 hours 03/02/22 13:55 Blood Culture - Preliminary Blood No Growth after 24 hours Assessment and Plan Assessment: Generalized weakness, failure to thrive secondary to influenza A infection. Treated with Tamiflu. Modified barium swallow results field evidence of aspiration. He did undergo PEG tube placement on 03/02/2022. Dyspnea secondary to some evidence of fluid volume overload. Remains on oral diuretics. No evidence of pneumonia. Pro calcitonin 0.15. Chest x-ray shows cardiomegaly. Sputum culture pending. Currently on Zosyn. Recent fall with left hip fracture status post repair at [facility] on Subacute rehabilitation at [facility] since 01/31/2022 Tested positive for influenza approximately 2 weeks ago Hyperlipidemia Hypertension Benign prosthetic hypertrophy History of seizures had been on Keppra in the outpatient setting, exact diagnosis unclear History of permanent pacemaker implantation Plan: The patient was seen and evaluated Medications reviewed Initiated on tube feedings via PEG tube Continue bronchodilators, Tamiflu Continue Zosyn and fluconazole per ID service Continue to assist the patient with flutter valve, incentive spirometer Increase his activity as tolerated Plan is for subacute rehabilitation post discharge We will continue to follow I have personally seen and examined the patient, performed the documentation and the assessment and plan as written. Number of minutes spent on the visit: 10.
--- NOTE | 2022-03-04 14:36 | P.PN ---
Subjective Progress Note Date: 03/04/22 CHIEF COMPLAINT: Severe protein malnutrition HISTORY OF PRESENT ILLNESS: The patient is a 86-year-old male with severe protein malnutrition, status post gastrostomy tube placement. Tube feeds management per dietitian. No reports of signs of bleeding. ROS: No reports of nausea and vomiting. No bowel movements. No fevers or chills. No new chest pain. No productive sputum. Patient underweight, BMI 17.8. Severe protein malnutrition. PHYSICAL EXAM: VITAL SIGNS: Reviewed CONSTITUTIONAL: Well developed and in no acute distress. EYES: Conjuctivae without sclera icterus. Extraocular movements grossly intact. HEAD, EARS, NOSE, THROAT: Moist buccal mucosa. Head is atraumatic, normocephalic . Hears conversational speech. No nasal drainage. RESPIRATORY: Non-labored respirations and equal bilateral excursions. CARDIOVASCULAR: Palpable 2+ radial pulses. ABDOMEN: Gastrostomy site clean dry and intact MUSCULOSKELETAL: No gross deformity of the lower extremities noted. No clubbing. No cyanosis. SKIN: Good skin turgor. Well perfused. NEUROLOGIC: Cranial nerves II through XII grossly intact. No focal or lateralizing signs. PSYCH: Appropriate affect. Alert and oriented to person, place and time. CLINICAL LABS: Reviewed. WBC normal. Hemoglobin normal. Albumin low at 2.9 ASSESSMENT: 1. Severe protein malnutrition 2. Underweight, BMI 17.8 PLAN: 1. Gastrostomy feeding tube nutritional assessment and goals per dietitian Objective - Vital Signs Vital signs: Vital Signs Temp 98.3 F 03/04/22 03:17 Pulse 94 03/04/22 08:46 Resp 20 03/04/22 03:17 BP 133/81 03/04/22 08:00 Pulse Ox 100 03/04/22 08:00 FiO2 Intake & Output 03/03/22 03/04/22 03/04/22 18:59 06:59 18:59 Output Total 100 Balance -100 Weight 53.07 kg Output: Urine 100 Other: Voiding Method Diaper Diaper Diaper External Catheter # Voids 1 # Bowel Movements 1 - Labs CBC & Chem 7: 03/02/22 13:55 03/03/22 06:36 Labs: Microbiology - Last 24 Hours (Table) 02/27/22 21:55 Blood Culture - Preliminary Blood No Growth after 96 hours 02/27/22 22:00 Blood Culture - Preliminary Blood No Growth after 96 hours 03/02/22 13:55 Blood Culture - Preliminary Blood No Growth after 24 hours
--- NOTE | 2022-03-04 16:44 | P.PN ---
Progress Note - Text Progress Note Date: 03/04/22 Hospital course: I assumed care of the patient today. Patient follows with Dr. Morris Thibodeaux. 03/01/2022: Patient was sent to the [facility] for weakness. Patient had been at [facility] for the last 1 month. Chronic stable medical conditions included EPH, PAD, GERD, hypertension, hyperlipidemia, dysarthria, CAD with bypass, seizures, anemia, AICD,. Patient is sent joints [facility] from January 26 through January 31 with left femur fracture followed by IM nailing by . Patient's weightbearing as tolerated. Patient was seen by speech therapy. Has been asked aspirating with thin liquids. Discussed with the therapist. Put on nectar thick liquids, supervised. No straws. Patient records from [facility] reviewed. Patient sitting up in a chair. This feeling weak and tired. Patient has no respiratory symptoms. He tested positive for influenza A. On Tamiflu. 03/02/2022: Patient choking even with liquids. Speech therapy communicated that patient should be made nothing by mouth. Patient also had a short run of V. tach off 5 beats. Unable to take his medications. Had a lengthy discussion with patient's and son at the bedside. Agreeable to NG tube.. Nurse called me later unable to place NG tube. Spoke to Dr. Renee from general surgery. Should be able to place a PEG tube this evening. Family agreeable to the same. Patient tired. Sometimes bouts of coughing. Family informed nurse that patient was taken off Keppra prior to going to [facility] and she has not had been continued. Hence and is being discontinued. Communicated to patient. 03/03/2022: Patient received a PEG tube yesterday evening. Medications and be started through that. In a recliner. Congested cough. Nothing by mouth. Patient's and daughter the bedside. Discussed. Dietitian consulted for tube feeding. Chest x-ray reviewed possible scanty infiltrate 04 March: Patient started on PEG tube feeding. 30 mL an hour. Appears more restful. Patient's and son at the bedside. IV Zosyn. Questions answered. Looking for patient to go to rehab on Sunday. Active Medications Acetaminophen (Acetaminophen Tab 325 Mg Tab) 650 mg PO Q4H PRN PRN Reason: General Discomfort Last Admin: 03/01/22 19:36 Dose: 650 mg Albuterol/Ipratropium (Ipratropium-Albuterol 3 Ml Neb) 3 ml INHALATION RT-QID COUNTS INCLUDE 234 BEDS AT THE [facility] Last Admin: 03/04/22 16:24 Dose: 3 ml Aspirin (Aspirin 81 Mg) 81 mg PO DAILY COUNTS INCLUDE 234 BEDS AT THE [facility] Last Admin: 03/04/22 09:33 Dose: 81 mg Budesonide (Budesonide 1 Mg/2 Ml Nebu) 1 mg INHALATION RT-BID COUNTS INCLUDE 234 BEDS AT THE [facility] Last Admin: 03/04/22 08:35 Dose: 1 mg Calcium Carbonate/Glycine (Calcium Carbonate 500 Mg Chewable) 1,000 mg PO HS COUNTS INCLUDE 234 BEDS AT THE [facility] Last Admin: 03/03/22 20:22 Dose: 1,000 mg Cholecalciferol (Cholecalciferol 25 Mcg (1000 Iu) Tablet) 50 mcg PO DAILY COUNTS INCLUDE 234 BEDS AT THE [facility] Last Admin: 03/04/22 09:33 Dose: 50 mcg Cyanocobalamin (Cyanocobalamin 500 Mcg Tab) 500 mcg PO W/BRKFST COUNTS INCLUDE 234 BEDS AT THE [facility] Last Admin: 03/04/22 06:02 Dose: 500 mcg Dorzolamide HCl (Dorzolamide Hcl 2% Drops 10 Ml Btl) 1 drops BOTH EYES Q8H COUNTS INCLUDE 234 BEDS AT THE [facility] Last Admin: 03/04/22 09:35 Dose: 1 drops Enoxaparin Sodium (Enoxaparin 40 Mg/0.4 Ml Syringe) 40 mg SQ DAILY COUNTS INCLUDE 234 BEDS AT THE [facility] Last Admin: 03/04/22 09:33 Dose: 40 mg Piperacillin Sod/Tazobactam (Sod 3.375 gm/ Sodium Chloride) 100 mls @ 25 mls/hr IVPB Q8HR COUNTS INCLUDE 234 BEDS AT THE [facility]; Protocol Last Admin: 03/04/22 09:33 Dose: 25 mls/hr Fluconazole/Sodium Chloride (100 mg/ IV Solution) 50 mls @ 50 mls/hr IVPB Q24H COUNTS INCLUDE 234 BEDS AT THE [facility] Last Admin: 03/03/22 15:56 Dose: 50 mls/hr Sodium Chloride (Saline 0.9%) 1,000 mls @ 100 mls/hr IV .Q10H COUNTS INCLUDE 234 BEDS AT THE [facility] Last Admin: 03/04/22 09:35 Dose: Not Given Isosorbide Mononitrate (Isosorbide Mononitrate Er 60 Mg Tab.Er.24h) 60 mg PO DAILY COUNTS INCLUDE 234 BEDS AT THE [facility] Last Admin: 03/04/22 09:35 Dose: 60 mg Lactulose (Lactulose 20 Gm/30 Ml Cup) 20 gm PO BID COUNTS INCLUDE 234 BEDS AT THE [facility] Last Admin: 03/04/22 09:34 Dose: Not Given Melatonin (Melatonin 5 Mg Tablet) 5 mg PO HS COUNTS INCLUDE 234 BEDS AT THE [facility] Last Admin: 03/03/22 20:22 Dose: 5 mg Metoprolol Tartrate (Metoprolol Tartrate 25 Mg Tab) 25 mg PO Q12H COUNTS INCLUDE 234 BEDS AT THE [facility] Last Admin: 03/04/22 09:33 Dose: 25 mg Miscellaneous Information ( Communication To Pharmacy 1 Each [facility]) 1 each PO ONCE PRN PRN Reason: See Comments Miscellaneous Information (Potassium Replacement Protocol 1 Each [facility]) 1 each MISCELLANE DAILY PRN; Protocol PRN Reason: Per Protocol Naloxone HCl (Naloxone 0.4 Mg/Ml 1 Ml Vial) 0.2 mg IV Q2M PRN PRN Reason: Opioid Reversal Nystatin (Nystatin 100,000 Unit/Ml Susp 500,000 Unit/5 Ml Cup) 500,000 unit PO QID COUNTS INCLUDE 234 BEDS AT THE [facility]; Protocol Last Admin: 03/04/22 12:35 Dose: 500,000 unit Oseltamivir Phosphate (Oseltamivir 75 Mg Cap) 75 mg PO Q12HR COUNTS INCLUDE 234 BEDS AT THE [facility]; Protocol Stop: 03/04/22 21:01 Last Admin: 03/04/22 09:33 Dose: 75 mg Pantoprazole Sodium (Pantoprazole 40 Mg/10 Ml Vial) 40 mg IV DAILY@0600 COUNTS INCLUDE 234 BEDS AT THE [facility] Last Admin: 03/04/22 06:02 Dose: 40 mg Pravastatin Sodium (Pravastatin Sodium 40 Mg Tab) 40 mg PO [facility] Last Admin: 03/03/22 20:22 Dose: 40 mg Tamsulosin HCl (Tamsulosin 0.4 Mg Cap.Er.24h) 0.4 mg PO BID COUNTS INCLUDE 234 BEDS AT THE [facility] Last Admin: 03/04/22 09:33 Dose: 0.4 mg On examination: VITAL SIGNS: 98.3, 18, 20, 133/8 1, 97% on room air GENERAL APPEARANCE: Reclining in chair, congested cough HEENT: Normal external appearance of nose and ear. Oral cavity white coated tongue. EYES: Pupils equal. Conjunctiva normal. NECK: JVD not raised. Mass not palpable. RESPIRATORY: Respiratory effort increased. Lungs coarse crackles. CARDIOVASCULAR: First and second sounds normal. No edema. ABDOMEN: Soft. Liver and spleen not palpable. No tenderness. No mass palpable. MUSCULAR skeletal: Evidence of OA. Loss of muscle mass. PSYCHIATRY: Patient able to answer simple questions INVESTIGATIONS, reviewed in the clinical context: 03/02/2022: White count 8.5 hemoglobin 14.4 potassium 3.3 creatinine 0.78. Procalcitonin 0.15 Modified barium swallow: Deep penetration without evidence of aspiration worse with thin liquids 03/01/2022: White count 9.6 and globin 13.1 platelets 94 potassium 3.9 creatinine 0.66 albumin 2.9 Influenza type A: Detected CT chest: Bilateral lower lobe dependent critically of groundglass opacities, mild COPD changes. Descending code thoracic aorta aneurysm 4.37. Moderate cardiomegaly. Assessment and plan: -Chronic dysphagia with aspiration to thin liquids.: Not improving Showed aspiration on modified barium swallow. On nectar thick liquids. ; Patient now also choking on thick liquids. Made nothing by mouth. -Possible aspiration pneumonitis: IV Zosyn -Influenza a Tamiflu -PEG tube placement with Dr. Yanez on 03/03/2022 Tube feeding started -BPH Flomax -PAD Aspirin, Pravachol -Oropharyngeal candidiasis Diflucan -GERD Prilosec -CAD with prior history of bypass Aspirin, Lopressor, Imdur -Hyperlipidemia Pravachol -Seizure disorder -AICD -Moderate to severe protein calorie malnutrition Nutritional supplement -01/26/2022 left femur fracture -IM nailing at [facility]. PT OT. weightbearing as tolerated -DO NOT RESUSCITATE Disposition: [facility] rehab Sunday
[2022-03-04] MEDS: FLUCONAZOLE IN NACL,ISO-OSM 100 MG in SALINE 1 50ML.BAG IVPB SCH (17:47)
[2022-03-04] MEDS: PRAVASTATIN SODIUM 40 MG TAB PO SCH (20:17)
[2022-03-04] MEDS: MELATONIN 5 MG TABLET PO SCH (20:17)
[2022-03-04] MEDS: CALCIUM CARBONATE 500 MG CHEWABLE PO SCH (20:17)
[2022-03-05 03:17] VITALS: TEMP 98.4
--- NOTE | 2022-03-05 05:50 | P.PN ---
Subjective Progress Note Date: 03/05/22 Principal diagnosis: Cardiac arrhythmia The patient is an 86-year-old gentleman with a past medical history significant for coronary artery disease by history as well as hypertension and dyslipidemia and history of AICD and also history of chronic obstructive pulmonary disease. The patient initially was admitted to the floor for increasing shortness of breath associated with cough and sputum production and he was diagnosed with influenza A infection. The patient initially was treated medically but for some reason because he was unable to take his medications including his beta miri medication where on hold. We consulted to see the patient because there was a concern about atrial fibrillation. We did review the EKG and the EKG seems to be consistent with multifocal atrial tachycardia more than atrial fibrillation. The patient is a poor historian and he is somewhat confused. No indication of any feeling of heart racing or fluttering and no symptoms of chest pain or chest discomfort but he continues to have shortness of breath. No dizziness or lightheadedness and no presyncope or syncope. The patient never seen by our service before. He does follow with a sample taker operator out of the town. Currently his heart rate has been under good control with multifocal atrial tachycardia. Beta miri was restarted again. We are going to continue the current medical regimen and obtain an echocardiogram was Doppler. March 052022 The patient was seen and evaluated this morning. Overall he seems to be stable from a cardiovascular standpoint of view. He is slightly tachypneic. He seems to be euvolemic on examination beside diminished breathing sounds bilaterally. Currently he is not on oxygen. No lower extremity edema noted. The echo still pending. No symptoms of chest pain or chest discomfort. He was tested positive for influenza A. Creatinine remains elevated but with normal as his baseline from before. Objective - Vital Signs Vital signs: Vital Signs Temp 98.4 F 03/05/22 03:16 Pulse 113 H 03/05/22 03:16 Resp 30 H 03/05/22 03:16 BP 138/78 03/05/22 03:16 Pulse Ox 97 03/05/22 03:16 FiO2 Intake & Output 03/04/22 03/04/22 03/05/22 06:59 18:59 06:59 Intake Total 150 Output Total 100 Balance 50 Intake: Intake, IV Titration 150 Amount Fluconazole in NaCl,Iso- 50 Osm 100 mg In Saline 1 50ml.bag @ 50 mls/hr IVPB Q24H [facility] Rx#:[id number] Piperacillin-Tazobactam 3 100 .375 gm In Sodium Chloride 0.9% 100 ml @ 25 mls/hr IVPB Q8HR [facility] Rx# :[id number] Oral 0 Output: Urine 100 Other: Voiding Method Diaper Diaper Diaper # Voids 1 1 # Bowel Movements 1 - Constitutional General appearance: Present: no acute distress - Respiratory Respiratory: bilateral: diminished - Cardiovascular Rhythm: irregularly irregular - Labs CBC & Chem 7: 03/02/22 13:55 03/03/22 06:36 Labs: Microbiology - Last 24 Hours (Table) 02/27/22 22:00 Blood Culture - Preliminary Blood No Growth after 120 hours 02/27/22 21:55 Blood Culture - Preliminary Blood No Growth after 120 hours 03/02/22 13:55 Blood Culture - Preliminary Blood No Growth after 48 hours 03/01/22 19:57 Gram Stain - Final Sputum Sputum Culture - Final Assessment and Plan Assessment: Assessment Influenza A and infection Cardiac arrhythmia into multifocal atrial tachycardia Coronary artery disease by history History of AICD Chronic kidney disease Plan Continue the current medical regimen Heart rate and pressure are controlled on the current medical regimen Obtain an echocardiogram was Doppler Follow-up with the patient
[2022-03-05] MEDS: PANTOPRAZOLE 40 MG/10 ML VIAL IV SCH (05:55)
[2022-03-05] MEDS: BUDESONIDE 1 MG/2 ML NEBU INHALATION SCH ×2 (07:43→20:20)
[2022-03-05] MEDS: IPRATROPIUM-ALBUTEROL 3 ML NEB INHALATION SCH ×4 (07:43→20:18)
[2022-03-05] MEDS ORDERED: LORazepam 0.5 MG TAB PO PRN (08:30)
[2022-03-05] MEDS: ASPIRIN 81 MG PO SCH (08:48)
[2022-03-05] MEDS: CYANOCOBALAMIN 500 MCG TAB PO SCH (08:50)
[2022-03-05] MEDS: METOPROLOL TARTRATE 25 MG TAB PO SCH (08:50)
[2022-03-05] MEDS: ISOSORBIDE MONONITRATE ER 60 MG TAB.ER.24H PO SCH (08:50)
[2022-03-05] MEDS: TAMSULOSIN 0.4 MG CAP.ER.24H PO SCH (08:50)
[2022-03-05] MEDS: CHOLECALCIFEROL 25 MCG (1000 IU) TABLET PO SCH (08:50)
[2022-03-05] MEDS: LACTULOSE 20 GM/30 ML CUP PO SCH (08:51)
[2022-03-05] MEDS: SODIUM CHLORIDE 0.9% 1,000 ML IV SCH ×2 (08:51→15:09)
[2022-03-05] MEDS: PIPERACILLIN-TAZOBACTAM 3.375 GM in SODIUM CHLORIDE 0.9% 100 ML IVPB SCH ×2 (08:51→15:09)
[2022-03-05] MEDS: DORZOLAMIDE HCL 2% DROPS 10 ML BTL BOTH EYES SCH ×2 (08:51→15:09)
[2022-03-05] MEDS: ENOXAPARIN 40 MG/0.4 ML SYRINGE SQ SCH (08:51)
[2022-03-05] MEDS: NYSTATIN 100,000 UNIT/ML SUSP 500,000 UNIT/5 ML CUP PO SCH ×3 (08:52→15:10)
--- NOTE | 2022-03-05 10:23 | XR ---
EXAMINATION TYPE: XR chest 1V portable DATE OF EXAM: 03/05/2022 COMPARISON: 03/02/2022 HISTORY: Shortness of breath TECHNIQUE: Single frontal view of the chest is obtained. FINDINGS: There is a single lead cardiac pacemaker. The lungs are clear of consolidative or interstitial opacity. The heart size is normal and the pulmonary vasculature is not congested. The osseous structures are diffusely osteopenic and there are chronic rotator cuff tears of both shou lders. IMPRESSION: 1. No acute cardiopulmonary disease. 2. Chronic rotator cuff tears of the shoulders.
--- NOTE | 2022-03-05 11:01 | P.PN ---
Subjective Progress Note Date: 03/05/22 This is a very pleasant 86-year-old male patient with a known history of hypertension, hyperlipidemia, BPH,, congestive heart failure, AICD placement. In January 2022 the patient had sustained a fall at home and broke his left hip. He was seen at [facility] emergency room and subsequent ab lation count is [facility] for left hip surgery and repair. He was discharged from there on 01/31/2022 to [facility] on the [place]. While there he contracted influenza and had been eating progressively weak. They transferred him to the sick [place] and he was not receiving any physical therapy. He had been losing a significant amount of weight. He is brought into the emergency room yesterday for an evaluation. White count 7.7. Hemoglobin 12.6. Platelets 196. Sodium 132. Potassium 3.9. BUN 24. Creatinine 0.75. ProBNP 1960. TSH 1.9. Influenza A+ COVID-19 screen negative. RSV screen negative. Pro-calcitonin pending. He is seen today in consultation on the in the emergency department. He is currently sitting up in as a chair. Awake and alert. He appears dehydrated. He is weak and cachectic. He is maintaining O2 saturations in the 90s on room air. Chest x-ray reveals cardiomegaly with prominent perihilar interstitial lung markings consistent with congestive heart failure versus atypical viral pneumonia. Computed tomography scan of the chest revealed bilateral lower lobe dependent reticular groundglass opacities representing atelectasis versus atypical viral pneumonia. Mild COPD changes. Descending thoracic aortic aneurysm measuring 4.3 cm. There is marketed air cardiomegaly and moderate, coronary artery calcifications. He does have dyspnea with minimal exertion. He has currently a dry nonproductive cough. Previously with some yellow phlegm. No fever. No chills. No nausea, vomiting or diarrhea. He has been initiated on Tamiflu, DuoNeb inhalations, Pulmicort inhalations, IV Solu- Medrol. He is remaining on oral diuretics. Lovenox for DVT prophylaxis. Tylenol for pain control. The patient is seen today 03/01/2022 in follow-up on the regular medical floor. He is currently resting comfortably in bed. Awake and alert in no acute distress. Maintaining good O2 saturations in the 90s on room air. Area swallow revealed deep penetration without evidence of aspiration worse with thinner consistencies. Awaiting speech therapy report. Blood cultures reveal no growth. White count 9.6. Hemoglobin 13.1. Platelets 194. Sodium 134. Potassium 3.9. BUN 25. Creatinine 0.66. Glucose 128. Urinalysis clear. He is positive for influenza A. He remains on bronchodilators. Continued on Tamiflu. Remains on oral diuretics. He is incontinent with no accurate I&O. The patient is seen today 03/03/2022 in follow-up on the regular medical floor. He is sitting up in a chair at the bedside. Awake and alert in no acute distress. He is maintaining O2 saturations up to 100% on 2 L/m per nasal cannula. He is afebrile. Hemodynamically stable. He had a PEG tube insertion yesterday. To be started on tube feedings later today. He continues with a weak congested cough. Chest x-ray reveals mild cardiomegaly. No acute pulmonary process. Blood cultures reveal no growth. Sputum culture pending. Potassium 3.5. Magnesium 2.1. Pro-calcitonin 0.15. He is continued on DuoNeb inhalations, Pulmicort inhalations. Completing a course of Tamiflu. Remains on antibiotics in the form of Zosyn and fluconazole. The patient is seen today 03/04/2022 in follow-up on the regular medical floor. He is resting comfortably in bed. Awake and alert in no acute distress. He continues with a loose cough. He was educated regarding the use of the incentive spirometer and a flutter valve. Sputum cultures pending. Blood cultures revealed no growth. He remains on DuoNeb inhalations, Pulmicort inhalations, antibiotics in the form of Zosyn. Completing a course of Tamiflu. He is also on fluconazole. Lovenox for DVT prophylaxis. He is now being nourished with Jevity 1.5 with a goal of 63 ML's per hour +175 ML's of water flushes every 4 hours. Patient is seen today 03/05/2022 in follow-up on the selective care unit. He had been quite restless and pulling at his gown and IVs. He was given Ativan approximately an hour prior to our arrival. He is currently somewhat obtunded, he has intermittent rapid and then quite shallow respirations. More like Tha-Lucio respirations. His family is at the bedside. Chest x-ray reveals no acute cardiopulmonary disease. Currently maintaining O2 saturations in the mid 90s on room air. Blood cultures revealed no growth. Sputum culture reveals no growth. He is continued on DuoNeb inhalations, Pulmicort inhalations, antibiotics in the form of Zosyn. Lovenox for DVT prophylaxis. Objective - Vital Signs Vital signs: Vital Signs Temp 98.4 F 03/05/22 03:16 Pulse 92 03/05/22 07:58 Resp 30 H 03/05/22 03:16 BP 138/78 03/05/22 03:16 Pulse Ox 97 03/05/22 03:16 FiO2 Intake & Output 03/04/22 03/05/22 03/05/22 18:59 06:59 18:59 Intake Total 150 Output Total 100 Balance 50 Intake: Intake, IV Titration 150 Amount Fluconazole in NaCl,Iso- 50 Osm 100 mg In Saline 1 50ml.bag @ 50 mls/hr IVPB Q24H RICHELLE Rx#:[id number] Piperacillin-Tazobactam 3 100 .375 gm In Sodium Chloride 0.9% 100 ml @ 25 mls/hr IVPB Q8HR RICHELLE Rx# :[id number] Oral 0 Output: Urine 100 Other: Voiding Method Diaper Diaper # Voids 1 - Exam GENERAL EXAM: Somewhat obtunded, cachectic, weak 86-year-old male, resting in bed, on room air. HEAD: Normocephalic. EYES: Normal reaction of pupils, equal size. NOSE: Clear with pink turbinates. THROAT: No erythema or exudates. NECK: No masses, no JVD. CHEST: No chest wall deformity. LUNGS: Equal air entry with equal air entry, no crackles or rhonchi or wheeze. CVS: S1 and S2 normal with no audible murmur, regular rhythm. ABDOMEN: PEG tube exit site is clean and dry. No hepatosplenomegaly, normal bowel sounds, no guarding or rigidity. SPINE: No scoliosis or deformity SKIN: No rashes CENTRAL NERVOUS SYSTEM: No focal deficits, tone is normal in all 4 extremities. EXTREMITIES: There is no peripheral edema. No clubbing, no cyanosis. Peripheral pulses are intact. - Labs CBC & Chem 7: 03/02/22 13:55 03/03/22 06:36 Labs: Microbiology - Last 24 Hours (Table) 02/27/22 22:00 Blood Culture - Preliminary Blood No Growth after 120 hours 02/27/22 21:55 Blood Culture - Preliminary Blood No Growth after 120 hours 03/02/22 13:55 Blood Culture - Preliminary Blood No Growth after 48 hours 03/01/22 19:57 Gram Stain - Final Sputum Sputum Culture - Final Assessment and Plan Assessment: Generalized weakness, failure to thrive secondary to influenza A infection. Treated with Tamiflu. Modified barium swallow results field evidence of aspiration. He did undergo PEG tube placement on 03/02/2022. Dyspnea secondary to some evidence of fluid volume overload. Remains on oral diuretics. No evidence of pneumonia. Pro calcitonin 0.15. Chest x-ray shows cardiomegaly and no acute process. Sputum culture reveals no growth. Currently on Zosyn. [place] with [place] [facility] [place] [facility] since 01/31/2022 Tested positive for influenza approximately 2 weeks ago Hyperlipidemia Hypertension Benign prosthetic hypertrophy History of seizures had been on Keppra in the outpatient setting, exact diagnosis unclear History of permanent pacemaker implantation Plan: The patient was seen and evaluated Chest x-ray, medications reviewed Labs are pending The patient's prognosis remains quite poor He is a DO NOT RESUSCITATE/DO NOT INTUBATE CODE STATUS May need to consider comfort care Family is at the bedside I have personally seen and examined the patient, performed the documentation and the assessment and plan as written. Number of minutes spent on the visit: 10.
--- NOTE | 2022-03-05 11:13 | CA ---
Transthoracic Echo Report Name: Umesh Lindquist Age: 86 Gender: M : 1935 Exam Date: 03/04/2022 08:52 Exam Location: [facility] Ht (in): 68 Wt (lb): 117 Ordering Physician: Jeffery Del Rosario MD ([id number]) Attending/Referring Phys: Freight Router Zandra Salinas, CINDI Procedure CPT: Indications: multifocal atrial tachycardia Cardiac Hx: Technical Quality: Fair Contrast 1: Total Dose (mL): Contrast 2: Total Dose (mL): MEASUREMENTS (Male / Female) Normal Values 2D ECHO LV Diastolic Diameter PLAX 5.3 cm 4.2 - 5.9 / 3.9 - 5.3 cm LV Systolic Diameter PLAX 4.4 cm IVS Diastolic Thickness 1.7 cm 0.6 - 1.0 / 0.6 - 0.9 cm LVPW Diastolic Thickness 1.6 cm 0.6 - 1.0 / 0.6 - 0.9 cm LV Relative Wall Thickness 0.6 LA Area 2C View 23.8 cm??? <= 20 cm??? DOPPLER AV Peak Gradient 4.7 mmHg AI Peak Velocity 481.3 cm/s AI Peak Gradient 92.7 mmHg AI Pressure Half Time 509.4 ms LVOT Peak Velocity 75.6 cm/s LVOT Peak Gradient 2.3 mmHg FINDINGS Left Ventricle Moderately increased left ventricular wall thickness. Left ventricular cavity size normal. Hypokinetic basal and mid lateral wall. Decreased systolic function. Left ventricular ejection fraction is estimated at 40-45 %. Right Ventricle Normal right ventricular size. Right Atrium Catheter/pacemaker wire in the right atrial cavity. Left Atrium Normal left atrial size. Mitral Valve Structurally normal mitral valve. Mitral valve thickened. Mild mitral annular calcification. Moderate mitral regurgitation. Aortic Valve No aortic stenosis. Mild aortic regurgitation. Tricuspid Valve Mild tricuspid regurgitation. Pulmonic Valve Pulmonic valve not well visualized. Pericardium Normal pericardium. Aorta Normal size aortic root and proximal ascending aorta. CONCLUSIONS Impaired LV function with EF between 40-45% Moderate mitral regurgitation Mild aortic regurgitation Previewed by: Dr. Jeffery Del Rosario MD (Electronically Signed) Final Date: 05 March 2022 11:12
[2022-03-05 11:41] LABS: ALT 28 U/L (4-49); AST 25 U/L (17-59); African American GFR (CKD) >90 (>60 ml/min/1.73 sqM); Albumin 2.1 g/dL (3.5-5.0); Alkaline Phosphatase 109 U/L (38-126); Anion Gap 2 mmol/L; Basophils # (A) 0.1 k/uL (0-0.2); Basophils % (A) 1 %; Blood Urea Nitrogen 25 mg/dL (9-20); Calcium 8.5 mg/dL (8.4-10.2); Carbon Dioxide 28 mmol/L (22-30); Chloride 113 mmol/L (98-107); Eosinophils % (A) 0 %; Glucose 158 mg/dL (74-99); HCT 40.1 % (39.0-53.0); HGB 12.5 gm/dL (13.0-17.5); Hypochromasia Slight; Lymphocytes # (A) 5.7 k/uL (1.0-4.8); Lymphocytes % (A) 51 %; MCH 33.3 pg (25.0-35.0); MCHC 31.2 g/dL (31.0-37.0); MCV 106.8 fL (80.0-100.0); Macrocytosis Marked; Mean Platelet Volume 8.4; Monocytes # (A) 0.2 k/uL (0-1.0); Monocytes % (A) 2 %; Neutrophils % (A) 45 %; Non-African American GFR(CKD) >90 (>60 ml/min/1.73 sqM); Platelet Count 171 k/uL (150-450); Potassium 3.4 mmol/L (3.5-5.1); RBC 3.75 m/uL (4.30-5.90); RDW 15.7 % (11.5-15.5); Sodium 143 mmol/L (137-145); Total Bilirubin 1.2 mg/dL (0.2-1.3); Total Protein 4.3 g/dL (6.3-8.2); WBC 11.3 k/uL (3.8-10.6)
[2022-03-05] MEDS ORDERED: MORPHINE SULFATE (100 MG/2 ML) 100 MG in SODIUM CHLORIDE 0.9% 100 ML IV SCH (12:00)
[2022-03-05 12:40] VITALS: BP 124/66
--- NOTE | 2022-03-05 14:44 | P.PN ---
Subjective Progress Note Date: 03/05/22 CHIEF COMPLAINT: Severe protein malnutrition HISTORY OF PRESENT ILLNESS: The patient is a 86-year-old male with severe protein malnutrition, status post gastrostomy tube placement. Patient now on comfort care on morphine drip. Patient on hospice. Patient is DO NOT RESUSCITATE. ROS: No reports of nausea and vomiting. Patient underweight, BMI 17.8. Severe protein malnutrition. PHYSICAL EXAM: VITAL SIGNS: Reviewed CONSTITUTIONAL: Well developed and in no acute distress. EYES: Conjuctivae without sclera icterus. Extraocular movements grossly intact. HEAD, EARS, NOSE, THROAT: Moist buccal mucosa. Head is atraumatic, normocephalic. Hears conversational speech. No nasal drainage. RESPIRATORY: Non-labored respirations and equal bilateral excursions. CARDIOVASCULAR: Palpable 2+ radial pulses. ABDOMEN: Gastrostomy site clean dry and intact MUSCULOSKELETAL: No gross deformity of the lower extremities noted. No clubbing. No cyanosis. SKIN: Good skin turgor. Well perfused. NEUROLOGIC: Cranial nerves II through XII grossly intact. No focal or lateralizing signs. CLINICAL LABS: Reviewed. ASSESSMENT: 1. Severe protein malnutrition 2. Underweight, BMI 17.8 3. DO NOT RESUSCITATE code 4. Hospice PLAN: 1. Patient is an comfort care morphine drip. 2. Prognosis poor Objective - Vital Signs Vital signs: Vital Signs Temp 98.4 F 03/05/22 03:16 Pulse 98 03/05/22 12:00 Resp 32 H 03/05/22 12:00 BP 124/66 03/05/22 12:00 Pulse Ox 95 03/05/22 12:00 FiO2 Intake & Output 03/04/22 03/05/22 03/05/22 18:59 06:59 18:59 Intake Total 150 510 Output Total 100 Balance 50 510 Intake: Intake, IV Titration 150 150 Amount Fluconazole in NaCl,Iso- 50 Osm 100 mg In Saline 1 50ml.bag @ 50 mls/hr IVPB Q24H RICHELLE Rx#:[id number] Piperacillin-Tazobactam 3 100 100 .375 gm In Sodium Chloride 0.9% 100 ml @ 25 mls/hr IVPB Q8HR RICHELLE Rx# :[id number] Sodium Chloride 0.9% 1, 50 000 ml @ 100 mls/hr IV . Q10H RICHELLE Rx#:[id number] Oral 0 Tube Feeding 160 Other 200 Output: Urine 100 Other: Voiding Method Diaper Diaper Diaper # Voids 1 - Labs CBC & Chem 7: 03/05/22 11:00 03/05/22 11:00 Labs: Abnormal Lab Results - Last 24 Hours (Table) 03/05/22 03/05/22 Range/Units 11:00 11:00 WBC 11.3 H (3.8-10.6) k/uL RBC 3.75 L (4.30-5.90) m/uL Hgb 12.5 L (13.0-17.5) gm/dL MCV 106.8 H (80.0-100.0) fL RDW 15.7 H (11.5-15.5) % Lymphocytes # 5.7 H (1.0-4.8) k/uL Macrocytosis Marked A Potassium 3.4 L (3.5-5.1) mmol/L Chloride 113 H (98-107) mmol/L BUN 25 H (9-20) mg/dL Creatinine 0.53 L (0.66-1.25) mg/dL Glucose 158 H (74-99) mg/dL Total Protein 4.3 L (6.3-8.2) g/dL Albumin 2.1 L (3.5-5.0) g/dL Microbiology - Last 24 Hours (Table) 02/27/22 22:00 Blood Culture - Preliminary Blood No Growth after 120 hours 02/27/22 21:55 Blood Culture - Preliminary Blood No Growth after 120 hours 03/02/22 13:55 Blood Culture - Preliminary Blood No Growth after 48 hours 03/01/22 19:57 Gram Stain - Final Sputum Sputum Culture - Final
[2022-03-05] MEDS: FLUCONAZOLE IN NACL,ISO-OSM 100 MG in SALINE 1 50ML.BAG IVPB SCH (15:09)
[2022-03-05 18:49] VITALS: PULSE 134; RESP 32
--- NOTE | 2022-03-05 21:45 | P.PN ---
Progress Note - Text Progress Note Date: 03/05/22 Hospital course: I assumed care of the patient today. Patient follows with Dr. Morris Thibodeaux. 03/01/2022: Patient was sent to the [facility] for weakness. Patient had been at [facility] for the last 1 month. Chronic stable medical conditions included EPH, PAD, GERD, hypertension, hyperlipidemia, dysarthria, CAD with bypass, seizures, anemia, AICD,. Patient is sent joints [facility] from January 26 through January 31 with left femur fracture followed by IM nailing by . Patient's weightbearing as tolerated. Patient was seen by speech therapy. Has been asked aspirating with thin liquids. Discussed with the therapist. Put on nectar thick liquids, supervised. No straws. Patient records from [facility] reviewed. Patient sitting up in a chair. This feeling weak and tired. Patient has no respiratory symptoms. He tested positive for influenza A. On Tamiflu. 03/02/2022: Patient choking even with liquids. Speech therapy communicated that patient should be made nothing by mouth. Patient also had a short run of V. tach off 5 beats. Unable to take his medications. Had a lengthy discussion with patient's and son at the bedside. Agreeable to NG tube.. Nurse called me later unable to place NG tube. Spoke to Dr. Renee from general surgery. Should be able to place a PEG tube this evening. Family agreeable to the same. Patient tired. Sometimes bouts of coughing. Family informed nurse that patient was taken off Keppra prior to going to [facility] and she has not had been continued. Hence and is being discontinued. Communicated to patient. 03/03/2022: Patient received a PEG tube yesterday evening. Medications and be started through that. In a recliner. Congested cough. Nothing by mouth. Patient's and daughter the bedside. Discussed. Dietitian consulted for tube feeding. Chest x-ray reviewed possible scanty infiltrate 04 March: Patient started on PEG tube feeding. 30 mL an hour. Appears more restful. Patient's and son at the bedside. IV Zosyn. Questions answered. Looking for patient to go to rehab on Sunday. March 05: Patient is seen by me earlier today. Patient becoming more respirator distress. Family decided proceed with comfort care. I spoke to the and several children in the room. Questions answered. Patient started on morphine drip. Patient's care deescalated Current medications reviewed On examination: VITAL SIGNS: 106, 34, 126/75, 95% room air GENERAL APPEARANCE: In bed. Lethargic but arousable HEENT: Normal external appearance of nose and ear. Oral cavity white coated tongue. EYES: Pupils equal. Conjunctiva normal. NECK: JVD not raised. Mass not palpable. RESPIRATORY: Respiratory effort increased. Lungs coarse crackles. CARDIOVASCULAR: First and second sounds normal. No edema. ABDOMEN: Soft. Liver and spleen not palpable. No tenderness. No mass palpable. MUSCULAR skeletal: Evidence of OA. Loss of muscle mass. PSYCHIATRY: Lethargic INVESTIGATIONS, reviewed in the clinical context: March 05: White count 9.3 hemoglobin 12.5 progression 3.4 creatinine 0.53 03/02/2022: White count 8.5 hemoglobin 14.4 potassium 3.3 creatinine 0.78. Procalcitonin 0.15 Modified barium swallow: Deep penetration without evidence of aspiration worse with thin liquids 03/01/2022: White count 9.6 and globin 13.1 platelets 94 potassium 3.9 creatinine 0.66 albumin 2.9 Influenza type A: Detected CT chest: Bilateral lower lobe dependent critically of groundglass opacities, mild COPD changes. Descending code thoracic aorta aneurysm 4.37. Moderate cardiomegaly. Assessment and plan: -Chronic dysphagia with aspiration to thin liquids.: Not improving Showed aspiration on modified barium swallow. On nectar thick liquids. ; Patient now also choking on thick liquids. Made nothing by mouth. -Possible aspiration pneumonitis: Worsening IV Zosyn -Influenza a Tamiflu -PEG tube placement with Dr. Yanez on 03/03/2022 Tube feeding started -BPH Flomax -PAD Aspirin, Pravachol -Oropharyngeal candidiasis Diflucan -GERD Prilosec -CAD with prior history of bypass Aspirin, Lopressor, Imdur -Hyperlipidemia Pravachol -Seizure disorder -AICD -Moderate to severe protein calorie malnutrition Nutritional supplement -01/26/2022 left femur fracture -IM nailing at [facility]. PT OT. weightbearing as tolerated -DO NOT RESUSCITATE/comfort measures Patient for continued go downhill. Respiratory status worsening. Family decided proceed with comfort measures. Care is D escalated. Morphine drip. Discussed with several members during the at the bedside.
--- NOTE | 2022-03-05 21:47 | P.DS ---
Providers Date of admission: 02/27/22 20:34 Expected date of discharge: 03/05/22 Attending physician: Venkatesh Gonzalez Consults: 02/28/22 00:16 Consult Physician Routine Consulting Provider: Lukasz Lau Consult Reason/Comments: influenza Do you want consulting provider notified?: Yes 02/28/22 13:10 Consult Physician Stat Consulting Provider: Trevon De La Torre Consult Reason/Comments: Pneumonia Do you want consulting provider notified?: Yes 03/02/22 13:01 Consult Physician Routine Consulting Provider: Sherif Yanez Consult Reason/Comments: PEG placement Do you want consulting provider notified?: Already Contacted 03/03/22 22:05 Consult Physician Routine Consulting Provider: Jeffery Del Rosario Consult Reason/Comments: new onset afib, paroxysmal Do you want consulting provider notified?: Yes, Notify in am Primary care physician: Morris Thibodeaux MD Hospital Course: Hospital course: I assumed care of the patient today. Patient follows with Dr. Morris Thibodeaux. 03/01/2022: Patient was sent to the [facility] for weakness. Patient had been at [facility] for the last 1 month. Chronic stable medical conditions included EPH, PAD, GERD, hypertension, hyperlipidemia, dysarthria, CAD with bypass, seizures, anemia, AICD,. Patient is sent joints [facility] from January 26 through January 31 with left femur fracture followed by IM nailing by . Patient's weightbearing as tolerated. Patient was seen by speech therapy. Has been asked aspirating with thin liquids. Discussed with the therapist. Put on nectar thick liquids, supervised. No straws. Patient records from [facility] reviewed. Patient sitting up in a chair. This feeling weak and tired. Patient has no respiratory symptoms. He tested positive for influenza A. On Tamiflu. 03/02/2022: Patient choking even with liquids. Speech therapy communicated that patient should be made nothing by mouth. Patient also had a short run of V. tach off 5 beats. Unable to take his medications. Had a lengthy discussion with patient's and son at the bedside. Agreeable to NG tube.. Nurse called me later unable to place NG tube. Spoke to Dr. Renee from general surgery. Should be able to place a PEG tube this evening. Family agreeable to the same. Patient tired. Sometimes bouts of coughing. Family informed nurse that patient was taken off Keppra prior to going to [facility] and she has not had been continued. Hence and is being discontinued. Communicated to patient. 03/03/2022: Patient received a PEG tube yesterday evening. Medications and be started through that. In a recliner. Congested cough. Nothing by mouth. Patient's and daughter the bedside. Discussed. Dietitian consulted for tube feeding. Chest x-ray reviewed possible scanty infiltrate 04 March: Patient started on PEG tube feeding. 30 mL an hour. Appears more restful. Patient's and son at the bedside. IV Zosyn. Questions answered. Looking for patient to go to rehab on Sunday. March 05: Patient is seen by me earlier today. Patient becoming more respirator distress. Family decided proceed with comfort care. I spoke to the and several children in the room. Questions answered. Patient started on morphine drip. Patient's care deescalated Patient later INVESTIGATIONS, reviewed in the clinical context: March 05: White count 9.3 hemoglobin 12.5 progression 3.4 creatinine 0.53 03/02/2022: White count 8.5 hemoglobin 14.4 potassium 3.3 creatinine 0.78. Procalcitonin 0.15 Modified barium swallow: Deep penetration without evidence of aspiration worse with thin liquids 03/01/2022: White count 9.6 and globin 13.1 platelets 94 potassium 3.9 creatinine 0.66 albumin 2.9 Influenza type A: Detected CT chest: Bilateral lower lobe dependent critically of groundglass opacities, mild COPD changes. Descending code thoracic aorta aneurysm 4.37. Moderate cardiomegaly. Cause of : CAD Assessment and plan: -Chronic dysphagia with aspiration to thin liquids.: Not improving Showed aspiration on modified barium swallow. On nectar thick liquids. ; Patient now also choking on thick liquids. Made nothing by mouth. -Possible aspiration pneumonitis: Worsening IV Zosyn -Influenza a Tamiflu -PEG tube placement with Dr. Yanez on 03/03/2022 Tube feeding started -BPH Flomax -PAD Aspirin, Pravachol -Oropharyngeal candidiasis Diflucan -GERD Prilosec -CAD with prior history of bypass Aspirin, Lopressor, Imdur -Hyperlipidemia Pravachol -Seizure disorder -AICD -Moderate to severe protein calorie malnutrition Nutritional supplement -01/26/2022 left femur fracture -IM nailing at [facility]. PT OT. weightbearing as tolerated -DO NOT RESUSCITATE/comfort measures Plan - Discharge Summary Discharge Rx Participant: Yes New Discharge Prescriptions: No Action Isosorbide Mononitrate ER [Imdur] 60 mg PO DAILY Lactose-Reduced Food [Ensure Plus] 237 ml PO TID@0900,1300,2100 Cholecalciferol [Vitamin D3 (25 Mcg = 1000 Iu)] 50 mcg PO DAILY Pravastatin Sodium [Pravachol] 40 mg PO HS Furosemide [Lasix] 40 mg PO DAILY@0600 Cyanocobalamin [Vitamin B-12] 500 mcg PO DAILY Calcium Carbonate [Calcium] 1,200 mg PO HS lisinopriL 2.5 mg PO DAILY Acetaminophen Tab [Tylenol] 650 mg PO Q4H PRN PRN Reason: General Discomfort Dorzolamide 2% [Trusopt 2%] 1 drop BOTH EYES Q8H Metoprolol Tartrate [Lopressor] 25 mg PO Q12H Calcium Carbonate [Tums] 500 mg PO Q12H Lactulose 20 gm PO BID Tamsulosin HCl [Flomax] 0.4 mg PO BID Omeprazole Magnesium [PriLOSEC OTC] 20 mg PO DAILY@0600 Aspirin EC [Ecotrin Low Dose] 81 mg PO DAILY Discharge Medication List Acetaminophen Tab [Tylenol] 650 mg PO Q4H PRN 02/27/22 [History] Aspirin EC [Ecotrin Low Dose] 81 mg PO DAILY 02/27/22 [History] Calcium Carbonate [Calcium] 1,200 mg PO HS 02/27/22 [History] Calcium Carbonate [Tums] 500 mg PO Q12H 02/27/22 [History] Cholecalciferol [Vitamin D3 (25 Mcg = 1000 Iu)] 50 mcg PO DAILY 02/27/22 [History] Cyanocobalamin [Vitamin B-12] 500 mcg PO DAILY 02/27/22 [History] Dorzolamide 2% [Trusopt 2%] 1 drop BOTH EYES Q8H 02/27/22 [History] Furosemide [Lasix] 40 mg PO DAILY@0600 02/27/22 [History] Isosorbide Mononitrate ER [Imdur] 60 mg PO DAILY 02/27/22 [History] Lactose-Reduced Food [Ensure Plus] 237 ml PO TID@0900,1300,2100 02/27/22 [History] Lactulose 20 gm PO BID 02/27/22 [History] Metoprolol Tartrate [Lopressor] 25 mg PO Q12H 02/27/22 [History] Omeprazole Magnesium [PriLOSEC OTC] 20 mg PO DAILY@0600 02/27/22 [History] Pravastatin Sodium [Pravachol] 40 mg PO HS 02/27/22 [History] Tamsulosin HCl [Flomax] 0.4 mg PO BID 02/27/22 [History] lisinopriL 2.5 mg PO DAILY 03/02/22 [History] Follow up Appointment(s)/Referral(s): Morris Thibodeaux MD [Primary Care Provider] - 1-2 days Discharge Disposition: - Preliminary Cause of Preliminary Cause of : CAD
--- NOTE | 2022-03-08 13:59 | CDI ---
Documentation Clarification Form Date: 03/08/2022 1:53:50 PM From: Anabella Coello RN, CCDS Email: [email or web address] Admit Date: 02/27/2022 8:34:00 PM Patient Name: Umesh Lindquist Visit Number: [id number] Discharge Date: 03/05/2022 9:29:00 PM ATTENTION: The Clinical Documentation Specialists (CDI) and [facility] Coding Staff appreciate your assistance in clarifying documentation. Please respond to the clarification below the line at the bottom and electronically sign. The CDI & [facility] Coding staff will review the response and follow-up if needed. Please note: Queries are made part of the Legal Health Record. If you have any questions, please contact the author of this message via ITS. Dr. Venkatesh Gonzalez Acute hypoxemic respiratory distress is documented in the H&P. Based on this information and the findings below, is there an additional diagnosis that is clinically appropriate for this patient? History/Risk Factors: hypertension, hyperlipidemia, BPH, congestive heart failure, AICD placement. In January 2022 the patient had sustained a fall at home and broke his left hip. He was sent to [facility] for left hip surgery and repair. He was discharged from there on 01/31/2022 to [facility]. While there he contracted influenza, hadnt been eating and getting progressively weak. 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 Supplemental oxygen Breathing tx: Duonebs QID scheduled O2: 2LNC Is there an additional diagnosis that is clinically appropriate for this patient? [ ] Acute Hypoxic Respiratory Failure (pO2 <60 mm Hg or SpO2 <91% on room air) [ ] Other Diagnosis, please specify [ ] Unable to determine MTDD
== END 2022-03-05 21:29 | disposition expired | DRG 193 ==
LOC: EC 12:28 → 4SSUR 20:34 → 3SCARD 03-02 16:53
PROVIDERS: ADMIT Hospitalist; ATTEND Hospitalist
PROC: 0DH68UZ Insertion of Feeding Device into Stomach, Via Natural or Artificial Opening Endoscopic (ICD-10-PCS; principal; 2022-03-02 07:30)
PROC: 3E0G76Z Introduction of Nutritional Substance into Upper GI, Via Natural or Artificial Opening (ICD-10-PCS; principal; 2022-03-02 07:30)
DX: J10.08 Influenza due to other identified influenza virus with other specified pneumonia (principal); E43 Unspecified severe protein-calorie malnutrition; Z68.1 Body mass index [BMI] 19.9 or less, adult; B37.0 Candidal stomatitis; I13.0 Hypertensive heart and chronic kidney disease with heart failure and stage 1 through stage 4 chronic kidney disease, or unspecified chronic kidney disease; I47.1 Supraventricular tachycardia; I47.20 Ventricular tachycardia, unspecified; N17.9 Acute kidney failure, unspecified; R64 Cachexia; R04.2 Hemoptysis; R32 Unspecified urinary incontinence; J12.9 Viral pneumonia, unspecified; J44.0 Chronic obstructive pulmonary disease with (acute) lower respiratory infection; D64.9 Anemia, unspecified; K21.9 Gastro-esophageal reflux disease without esophagitis; I71.23 Aneurysm of the descending thoracic aorta, without rupture; I73.9 Peripheral vascular disease, unspecified; Z20.822 Contact with and (suspected) exposure to COVID-19; Z51.5 Encounter for palliative care; Z66 Do not resuscitate; I50.9 Heart failure, unspecified; R62.7 Adult failure to thrive; G40.909 Epilepsy, unspecified, not intractable, without status epilepticus; I95.9 Hypotension, unspecified; N18.9 Chronic kidney disease, unspecified; R09.02 Hypoxemia; N40.0 Benign prostatic hyperplasia without lower urinary tract symptoms; E78.5 Hyperlipidemia, unspecified; Z95.1 Presence of aortocoronary bypass graft; I48.0 Paroxysmal atrial fibrillation; E86.0 Dehydration; J69.0 Pneumonitis due to inhalation of food and vomit; R13.10 Dysphagia, unspecified; I25.10 Atherosclerotic heart disease of native coronary artery without angina pectoris; M19.90 Unspecified osteoarthritis, unspecified site; R47.1 Dysarthria and anarthria; W19.XXXD Unspecified fall, subsequent encounter; S72.92XD Unspecified fracture of left femur, subsequent encounter for closed fracture with routine healing; Z95.810 Presence of automatic (implantable) cardiac defibrillator; I25.2 Old myocardial infarction; Z28.311 Partially vaccinated for COVID-19; Z71.3 Dietary counseling and surveillance; Z87.01 Personal history of pneumonia (recurrent)
CPT/HCPCS: 36415; 43246; 71045; 71046; 71250; 74230; 80053; 81001; 83605; 83735; 83880; 84132; 84145; 84443; 85025; 86140; 87040; 87070; 87086; 87205; 87636; 93005; 93306; 94640; 94667; 94668; 94760; 96361; 96372; 96374; 96376; 99285